=== PATIENT | male | born 1950 | race Caucasian/White ===

== ENCOUNTER → 2016-07-26 | Outpatient (CLI) | payer BC ==
[~2016-07-26] MED LIST: ASPI81TA28 PO; BYS/5 PO; CRD4 PO; FEXO1TAB49 PO; FLNIN/ NAE; LOSA100T65 PO; LPT10 PO; NRV/5 PO; OMEP20CA9 PO; SILD100T PO; SNG10 PO
--- NOTE | 2016-07-26 09:55 | DIAGNOSTIC IMAGING REPORT ---
ABDOMEN COMPLETE (US) CLINICAL HISTORY: R10.11 Abdominal pain, RUQ (right upper quadrant)[id number] COMPARISON STUDY: No previous studies for comparison. FINDINGS: The liver was of slightly increased echogenicity, consistent with hepatic steatosis. No focal masses are visualized. No gallstones are identified. There is no ductal dilatation. The common bile duct measured 4 mm. The pancreas is nonvisualized. The splenic masses are visualized. The spleen measures 8 cm in length. The right kidney measures 9.3 cm in length. The left kidney measures 9.3 cm in length. No renal masses were visualized. There is no hydronephrosis. No evidence of as the IVC were identified. The aorta was not well visualized. IMPRESSION: 1. Nondiagnostic evaluation the pancreas 2. Slight increase in hepatic echogenicity, likely secondary to hepatic steatosis 3. Otherwise unremarkable ultrasound of the upper abdomen. Electronically signed by: Alvin Dhillon M.D. 07/26/2016 9:54 AM Dictated Date/Time: 07/26/2016 9:49 AM
== END | disposition home or self-care (01) ==
LOC: C.ULTRBC 08:59
PROVIDERS: ATTEND Internal Medicine Geriatric Medicine
DX: R10.11 Right upper quadrant pain (principal)

== ENCOUNTER → 2016-10-18 | Outpatient (CLI) | payer BC ==
[2016-10-18 17:30] LABS: BASO % 0.5 %; BASO ABS # 0.03 K/uL (0-0.2); COMPLETE YES; EOS % 0.6 %; HEMATOCRIT 44.6 % (42-52); IG% 1.2 %; LYMPH % 16.6 %; LYMPH ABS # 1.08 K/uL (1.2-3.4); MEAN CELL VOLUME 93.7 fL (80-100); MEAN CORPUSCULAR HEMOGLOBIN 30.9 pg (25-34); MEAN PLATELET VOLUME 11.2 fL (7.4-10.4); MONO % 8.2 %; NEUT % 72.9 %; PLATELET COUNT 266 K/uL (130-400); RED BLOOD COUNT 4.76 M/uL (4.7-6.1); WHITE BLOOD COUNT 6.49 K/uL (4.8-10.8)
[2016-10-18 18:19] LABS: THYROID STIMULATING HORMONE 1.74 uIu/ml (0.300-4.500)
[2016-10-19 05:51] LABS: ESTIMATED AVERAGE GLUCOSE 126 mg/dl; HA1C FLAG Normal (Normal)
== END | disposition home or self-care (01) ==
LOC: C.LABPBG 11:02
PROVIDERS: ATTEND Internal Medicine Geriatric Medicine
DX: N18.9 Chronic kidney disease, unspecified (principal); R73.9 Hyperglycemia, unspecified; E78.5 Hyperlipidemia, unspecified; R53.83 Other fatigue; Z11.59 Encounter for screening for other viral diseases

== ENCOUNTER → 2016-11-26 | Day surgery (SDC) | payer BC ==
[2016-11-22 14:58] VITALS: Ht 157.5 cm; Wt 82.7 kg
[~2016-11-26] VITALS: Ht 157.5 cm; Wt 82.7 kg
[~2016-11-26] MED LIST changes: +KETAMINE HCL INJ 50 MG/ML 10 ML VIAL ONE; +LIDOCAINE HCL 2% 2 ML VIAL (20MG/ML) ONE; +MIDAZOLAM HCL 1 MG/ML 2ML VIAL ONE; +PROPOFOL IV EMULSION 10 MG/ML 20 ML VIAL IV ONE; +SODIUM CHLORIDE 0.9% 500ML 500 ML IV ONE
--- NOTE | 2016-11-26 08:49 | Endo History and Physical ---
History & Physical Date of Service: Nov 26, 2016. Chief Complaint: screening Referring Physician: Dr. Álvaro Goodman History of Present Illness 65 yo CM who presents for screening colonoscopy. Past Surgical History Hx Cardiac Surgery: No Hx Internal Defibrillator: No Hx Pacemaker: No Hx Abdominal Surgery: No Hx of Implantable Prosthesis: No Hx Post-Op Nausea and Vomiting: No Hx Cancer Surgery: Yes (SKIN CANCER REMOVED FROM FACE) Hx Thoracic Surgery: No Hx Orthopedic: No Hx Urinary Tract Surgery: No Family History None Social History Smoking Status: Never Smoker Hx Substance Use: No Hx Alcohol Use: No Allergies Coded Allergies: Lisinopril (Verified Allergy, Mild, COUGH, 11/22/16) Amoxicillin (Verified Allergy, Unknown, ?, 11/22/16) Clavulanic Acid (Verified Allergy, Unknown, ?, 11/22/16) Hydrochlorothiazide (Verified Allergy, Unknown, RASH, 11/22/16) Olmesartan (Verified Allergy, Unknown, ?, 11/22/16) Simvastatin (Verified Allergy, Unknown, RASH, 11/22/16) Current Medications Reported Home Medications Medications Dose Route/Sig Max Daily Dose Days Date Category Viagra (Sildenafil Citrate) 100 Mg Tab 100 Mg PO UD 05/21/16 Reported Atorvastatin Calcium (Atorvastatin) 10 Mg Tab 10 Mg PO QAM 05/21/16 Reported Fluticasone Propionate 120 Sprays/6000 Mcg Inha 2 Sprays PARI DAILY PRN 05/21/16 Reported Cozaar (Losartan Potassium) 100 Mg Tab 100 Mg PO QAM 05/21/16 Reported Prilosec (Omeprazole) 20 Mg Cap 20 Mg PO QAM 05/21/16 Reported Montelukast Sodium (Montelukast Sod) 10 Mg Tab 10 Mg PO QAM 05/21/16 Reported Doxazosin Mesylate 4 Mg Tab 4 Mg PO QAM 05/21/16 Reported Amlodipine Besylate 5 Mg Tab 5 Mg PO QAM 05/21/16 Reported Aspirin Ec (Aspirin) 81 Mg Tab 81 Mg PO QAM 05/21/16 Reported Bystolic (Nebivolol Hcl) 5 Mg Tab 7.5 Mg PO QAM 04/27/15 Reported Keira Allergy (Fexofenadine Hcl) 180 Mg Tab 180 Mg PO QAM PRN 04/27/15 Reported Vital Signs Weight (Kilograms): 82.73 Height (Feet): 5 Height (Inches): 2 Date Time Temp Pulse Resp B/P (MAP) Pulse Ox O2 Delivery O2 Flow Rate FiO2 11/26/16 08:13 36.6 72 18 164/95 (118) 98 Room Air Physical Exam General Appearance: WD/WN, no apparent distress Respiratory/Chest: Auscultation: breath sounds normal Cardiovascular: Heart Auscultation: RRR Abdomen: Bowel Sounds: normal Inspection & Palpation: soft, non-distended, no tenderness, guarding & rebound Assessment and Plan Assessment: 65 yo CM who presents for screening colonoscopy. Plan: Proceed with colonoscopy.
--- NOTE | 2016-11-26 09:39 | Discharge Instructions ---
Endoscopy Patient Instructions Date / Procedure(s) Performed Nov 26, 2016. Colonoscopy Allergy Information Coded Allergies: Lisinopril (Verified Allergy, Mild, COUGH, 11/22/16) Amoxicillin (Verified Allergy, Unknown, ?, 11/22/16) Clavulanic Acid (Verified Allergy, Unknown, ?, 11/22/16) Hydrochlorothiazide (Verified Allergy, Unknown, RASH, 11/22/16) Olmesartan (Verified Allergy, Unknown, ?, 11/22/16) Simvastatin (Verified Allergy, Unknown, RASH, 11/22/16) Discharge Date / Findings Nov 26, 2016. Diverticulosis Internal hemorrhoids Medication Instructions Stopped Medication(s): took ASA yesterday OK to resume all medications today as prescribed Reported Home Medications Medications Dose Route/Sig Max Daily Dose Days Date Category Viagra (Sildenafil Citrate) 100 Mg Tab 100 Mg PO UD 05/21/16 Reported Atorvastatin Calcium (Atorvastatin) 10 Mg Tab 10 Mg PO QAM 05/21/16 Reported Fluticasone Propionate 120 Sprays/6000 Mcg Inha 2 Sprays PARI DAILY PRN 05/21/16 Reported Cozaar (Losartan Potassium) 100 Mg Tab 100 Mg PO QAM 05/21/16 Reported Prilosec (Omeprazole) 20 Mg Cap 20 Mg PO QAM 05/21/16 Reported Montelukast Sodium (Montelukast Sod) 10 Mg Tab 10 Mg PO QAM 05/21/16 Reported Doxazosin Mesylate 4 Mg Tab 4 Mg PO QAM 05/21/16 Reported Amlodipine Besylate 5 Mg Tab 5 Mg PO QAM 05/21/16 Reported Aspirin Ec (Aspirin) 81 Mg Tab 81 Mg PO QAM 05/21/16 Reported Bystolic (Nebivolol Hcl) 5 Mg Tab 7.5 Mg PO QAM 04/27/15 Reported Keira Allergy (Fexofenadine Hcl) 180 Mg Tab 180 Mg PO QAM PRN 04/27/15 Reported Provider Instructions Activity Restrictions - No exercising or heavy lifting for 24 hours. - Do not drink alcohol the day of the procedure. - Do not drive a car or operate machinery until the day after the procedure. - Do not make any important decisions or sign important papers in 24 hours after the procedure. Following Day: - Return to full activity which may include returning to work/school. Diet Start your diet with liquids and light foods (jello, soup, juice, toast). Then eat your usual diet if not nauseated. Treatment For Common After Affects For mild abdominal pain, bloating, or excessive gas: - Rest - Eat lightly - Lie on right side Follow-Up Information Follow-up with Dr. Álvaro Goodman as scheduled Anesthesia Information What You Should Know You have had a procedure that required some medicine to reduce anxiety and discomfort. This treatment is called moderate sedation. After receiving the treatment, you may be sleepy, but you will be able to breathe on your own. The effects of the treatment may last for several hours. Follow these instructions along with Activity/Diet recommendations noted above: * Do NOT do anything where dizziness or clumsiness would be dangerous. * Rest quietly at home today, then you can be up and about tomorrow. * Have a responsible person stay with you the rest of today. * You may have had an I.V. today. If so, you may take the dressing off later today. Recommendations Call your doctor if: * Trouble breathing * Continuous vomiting for more than 24 hours * Temperature above 101 degrees * Severe abdominal pain or bloating * Pain not relieved by pain medicine ordered * There is increased drainage or redness from any incision * A large amount of rectal bleeding greater than 2-3 tablespoons. (If you had a polyp/s removed or have hemorrhoids, a small amount of blood - from the rectum is to be expected.) * You have any unanswered questions or concerns. IN THE EVENT OF A SERIOUS EMERGENCY, GO TO THE NEAREST EMERGENCY ROOM Your discharge instructions were prepared by provider Mihir Meek. Patient Instructions Signature Page Benjamín Sushil Patient (or Guardian) Signature/Date: I have read and understand the instructions given to me by my caregivers. Caregiver/RN/Doctor Signature/Date: The above-named patient and/or guardian has received patient instructions on this date. + Original Patient Signature Page (only) stays with chart. Please make copy for patient.
[2016-11-26 09:45] VITALS: BP 136/87; PULSE 66; TEMP 36.6; O2SAT 96
--- NOTE | 2016-11-26 09:46 | Anesthesiology Progress Note ---
Anesthesia Post Op Note Date & Time Nov 26, 2016 at 09:46 Vital Signs Pain Intensity: 0 Vital Signs Past 12 Hours Date Time Temp Pulse Resp B/P (MAP) Pulse Ox O2 Delivery O2 Flow Rate FiO2 11/26/16 09:45 36.6 66 20 136/87 (103) 96 Room Air 11/26/16 09:30 69 18 131/87 (102) 96 Room Air 11/26/16 09:15 67 18 119/75 (90) 98 Room Air 11/26/16 08:13 36.6 72 18 164/95 (118) 98 Room Air Notes Mental Status: alert / awake / arousable, participated in evaluation Pt Amnestic to Procedure: Yes Nausea / Vomiting: adequately controlled Pain: adequately controlled Airway Patency, RR, SpO2: stable & adequate BP & HR: stable & adequate Hydration State: stable & adequate Anesthetic Complications: no major complications apparent
--- NOTE | 2016-11-26 10:06 | GI REPORT ---
Procedure Date: 11/26/2016 8:46 AM Procedure: Colonoscopy Indications: Screening for colorectal malignant neoplasm Medicines: Monitored Anesthesia Care Complications: No immediate complications. Estimated Blood Loss: Estimated blood loss: none. Procedure: Pre-Anesthesia Assessment: - Prior to the procedure, a History and Physical was performed, and patient medications and allergies were reviewed. The patient's tolerance of previous anesthesia was also reviewed. The risks and benefits of the procedure and the sedation options and risks were discussed with the patient. All questions were answered, and informed consent was obtained. Prior Anticoagulants: The patient has taken aspirin, last dose was 1 day prior to procedure. ASA Grade Assessment: II - A patient with mild systemic disease. After reviewing the risks and benefits, the patient was deemed in satisfactory condition to undergo the procedure. After I obtained informed consent, the scope was passed under direct vision. Throughout the procedure, the patient's blood pressure, pulse, and oxygen saturations were monitored continuously. The Scope was introduced through the anus and advanced to the terminal ileum. The colonoscopy was performed without difficulty. The patient tolerated the procedure well. The quality of the bowel preparation was good. The terminal ileum, ileocecal valve, appendiceal orifice, and rectum were photographed. Findings: Multiple small-mouthed diverticula were found in the sigmoid colon. Non-bleeding internal hemorrhoids were found during retroflexion. The hemorrhoids were small. Impression: - Diverticulosis in the sigmoid colon. - Non-bleeding internal hemorrhoids. - No specimens collected. Recommendation: - Resume previous diet. - Continue present medications. - Repeat colonoscopy in 10 years for surveillance. - Return to primary care physician as previously scheduled. Mihri Meek, 11/26/2016 10:05:41 AM This report has been signed electronically. Note Initiated On: 11/26/2016 8:46 AM I attest to the content of the Intraoperative Record and orders documented therein, exceptions below
== END | disposition home or self-care (01) ==
LOC: C.GI 07:46
PROVIDERS: ATTEND Internal Medicine
DX: Z12.11 Encounter for screening for malignant neoplasm of colon (principal); K57.30 Diverticulosis of large intestine without perforation or abscess without bleeding; K64.8 Other hemorrhoids; Z79.82 Long term (current) use of aspirin; Z79.899 Other long term (current) drug therapy

== ENCOUNTER 2017-10-18 16:55 | Emergency (ER) | payer BC ==
[~2017-10-18] VITALS: Ht 157.5 cm; Wt 83.5 kg
[~2017-10-18 16:55] MED LIST changes: -ASPI81TA28 PO; -CRD4 PO; -FLNIN/ NAE; -KETAMINE HCL INJ 50 MG/ML 10 ML VIAL ONE; -LIDOCAINE HCL 2% 2 ML VIAL (20MG/ML) ONE; -LOSA100T65 PO; -LPT10 PO; -MIDAZOLAM HCL 1 MG/ML 2ML VIAL ONE; -NRV/5 PO; -OMEP20CA9 PO; -PROPOFOL IV EMULSION 10 MG/ML 20 ML VIAL IV ONE; -SILD100T PO; -SNG10 PO; -SODIUM CHLORIDE 0.9% 500ML 500 ML IV ONE
[2017-10-18 17:03] VITALS: TEMP 36.6
[2017-10-18 17:28] VITALS: Ht 157.5 cm; Wt 83.5 kg
[2017-10-18 17:33] VITALS: O2SAT 98
[2017-10-18 17:44] LABS: BASO % 0.4 %; BASO ABS # 0.03 K/uL (0-0.2); EOS % 2.2 %; EOS ABS # 0.15 K/uL (0-0.5); HEMATOCRIT 43.5 % (42-52); HEMOGLOBIN 15.3 g/dL (14.0-18.0); IG# 0.06 K/uL (0.00-0.02); LYMPH % 19.9 %; LYMPH ABS # 1.38 K/uL (1.2-3.4); MEAN CELL VOLUME 88.8 fL (80-100); MEAN CORPUSCULAR HEMOGLOBIN 31.2 pg (25-34); MEAN CORPUSCULAR HGB CONC 35.2 g/dl (32-36); MEAN PLATELET VOLUME 10.3 fL (7.4-10.4); MONO % 15.6 %; MONO ABS # 1.08 K/uL (0.11-0.59); NEUT ABS # 4.24 K/uL (1.4-6.5); PLATELET COUNT 251 K/uL (130-400); RED CELL DISTRIBUTION WIDTH CV 14.1 % (11.5-14.5); RED CELL DISTRIBUTION WIDTH SD 45.9 fL (36.4-46.3); WHITE BLOOD COUNT 6.94 K/uL (4.8-10.8)
[2017-10-18] MEDS ORDERED: TPRSR/100 PO (17:47)
[2017-10-18] MEDS ORDERED: POLY335019 PO (17:47)
[2017-10-18] MEDS ORDERED: TRMCR130WC TOP (17:47)
[2017-10-18 17:52] LABS: PTT PATIENT 24.3 SECONDS (21.0-31.0)
--- NOTE | 2017-10-18 18:05 | DIAGNOSTIC IMAGING REPORT ---
CHEST ONE VIEW PORTABLE CLINICAL HISTORY: 66 years-old Male presenting with EVALUATE ALTERED MENTAL STATUS/WEAKNESS. TECHNIQUE: Portable semiupright AP view of the chest was obtained. COMPARISON: 09/02/2015. FINDINGS: Cardiac silhouette top normal in size. Lungs and pleural spaces clear. Osseous structures normal. Upper abdomen normal. IMPRESSION: 1. No acute cardiopulmonary disease. Electronically signed by: Darnell Morris M.D. 10/18/2017 6:04 PM Dictated Date/Time: 10/18/2017 6:01 PM
[2017-10-18 18:18] VITALS: BP 128/79; PULSE 62; O2SAT 97
[2017-10-18 18:18] LABS: ALBUMIN 4.2 gm/dl (3.4-5.0); ALKALINE PHOSPHATASE 104 U/L (45-117); ALT/SGPT 40 U/L (12-78); AST/SGOT 22 U/L (15-37); BLOOD UREA NITROGEN 19 mg/dl (7-18); CARBON DIOXIDE 28 mmol/L (21-32); CREATININE 1.52 mg/dl (0.60-1.40); GLUCOSE 88 mg/dl (70-99); POTASSIUM 4.3 mmol/L (3.5-5.1); SODIUM 141 mmol/L (136-145); TOTAL PROTEIN 7.8 gm/dl (6.4-8.2)
--- NOTE | 2017-10-18 20:08 | EMERGENCY ROOM VISIT NOTE ---
History Report prepared by Savanah: Rubio Hackett Under the Supervision of: Dr. Rodney Valentin D.O. First contact with patient: 17:16 Chief Complaint: HYPERTENSION Stated Complaint: HIGH BLOOD PRESSURE, SWOLLEN HANDS AND ANKLES History of Present Illness The patient is a 66 year old male who presents to the Emergency Room with complaints of constant hypertension starting today around 1300 today. The patient states that he woke up today around 1300, and he felt sluggish, dizzy, swollen feet, and swollen arms. He has a history of hypertension for a long time , and his amlodipine was increased from 5mg to 7.5mg 4 months ago. The patient states that he took his blood pressure this afternoon, and it was 187/92, and then fifteen minutes later it had increased more. He called his PCP office, and they told him to come to the ED for evaluation. The patient states that last night while at work he was having increased shortness of breath with exertion. He denies any chest pain, tobacco use, alcohol use, urinary symptoms, and any past surgeries. Source of History: patient Onset: 1300 Position: other (generalized) Symptom Intensity: 187/92 Quality: other (hypertension) Timing: constant Associated Symptoms: + SOB, No chest pain, No urinary symptoms Note: Associated symptoms: sluggish, dizzy, swollen feet, and swollen arms Review of Systems See HPI for pertinent positives & negatives. A total of 10 systems reviewed and were otherwise negative. Past Medical & Surgical Medical Problems: (1) Esophageal Reflux (2) Hypertension Nos (3) Rosacea Surgical Problems: (1) Skin cancer of nose Social History Smoking Status: Never Smoker Alcohol Use: none Marital Status: Housing Status: lives with family Occupation Status: employed Current/Historical Medications Scheduled Amlodipine Besylate (Amlodipine Besylate), 5 MG PO QAM Aspirin (Aspirin Ec), 81 MG PO QAM Atorvastatin (Lipitor), 10 MG PO QAM Doxazosin Mesylate (Doxazosin Mesylate), 4 MG PO QAM Losartan Potassium (Cozaar), 100 MG PO QAM Metoprolol Succinate (Metoprolol Succinate ER), 100 MG PO DAILY Montelukast Sod (Montelukast Sodium), 10 MG PO QAM Omeprazole (Prilosec), 20 MG PO QAM Sildenafil Citrate (Viagra), 100 MG PO UD Scheduled PRN Fexofenadine Hcl (Keira Allergy), 180 MG PO QAM PRN for Allergy Symptoms Fluticasone Propionate (Fluticasone Propionate), 2 SPRAYS PARI DAILY PRN for Allergy Symptoms Polyethylene Glycol 3350 (Miralax), 17 GM PO DAILY PRN for Constipation Triamcinolone Acet (Aristocort 0.1%), 1 APPLN TOP BID PRN for legs Allergies Coded Allergies: Lisinopril (Verified Allergy, Mild, COUGH, 11/22/16) Amoxicillin (Verified Allergy, Unknown, ?, 11/22/16) Clavulanic Acid (Verified Allergy, Unknown, ?, 11/22/16) Hydrochlorothiazide (Verified Allergy, Unknown, RASH, 11/22/16) Olmesartan (Verified Allergy, Unknown, ?, 11/22/16) Simvastatin (Verified Allergy, Unknown, RASH, 11/22/16) Physical Exam Vital Signs Date Time Temp Pulse Resp B/P (MAP) Pulse Ox O2 Delivery O2 Flow Rate FiO2 10/18/17 18:18 62 18 128/79 97 Room Air 10/18/17 17:48 65 10/18/17 17:33 98 Room Air 10/18/17 17:33 98 Room Air 10/18/17 17:03 36.6 69 18 164/93 99 Room Air Physical Exam GENERAL: Patient is awake, alert, and in no acute distress. Patient is resting comfortably and showing no signs of anxiety EYES: The conjunctivae are clear. The pupils are round and reactive. EARS, NOSE, MOUTH AND THROAT: The nose is without any evidence of any deformity. Mucous membranes are moist tongue is midline NECK: The neck is nontender and supple. RESPIRATORY: Normal respiratory effort is noted there is no evidence of wheezing rhonchi or rales CARDIOVASCULAR: Regular rate and rhythm noted there no murmurs rubs or gallops normal S1 normal S2 GASTROINTESTINAL: The abdomen is soft. Bowel sounds are present in all quadrants. Abdomen is nontender MUSCULOSKELETAL/EXTREMITIES: There is no evidence of gross deformity full range of motion is noted in the hips and shoulders SKIN: There is no obvious evidence of any rash. There are no petechiae, pallor or cyanosis noted. NEUROLOGIC: Patient is awake alert and oriented x3 strength is symmetric patellar reflexes are 2+ bilaterally Medical Decision & Procedures ER Provider Diagnostic Interpretation: Radiology results as stated below per my review and radiologist interpretation: CHEST ONE VIEW PORTABLE CLINICAL HISTORY: 66 years-old Male presenting with EVALUATE ALTERED MENTAL STATUS/WEAKNESS. TECHNIQUE: Portable semiupright AP view of the chest was obtained. COMPARISON: 09/02/2015. FINDINGS: Cardiac silhouette top normal in size. Lungs and pleural spaces clear. Osseous structures normal. Upper abdomen normal. IMPRESSION: 1. No acute cardiopulmonary disease. Electronically signed by: Darnell Morris M.D. 10/18/2017 6:04 PM Dictated Date/Time: 10/18/2017 6:01 PM Laboratory Results 10/18/17 17:28 Red Blood Count 4.90, Mean Corpuscular Volume 88.8, Mean Corpuscular Hemoglobin 31.2, Mean Corpuscular Hemoglobin Concent 35.2, Mean Platelet Volume 10.3, Neutrophils (%) (Auto) 61.0, Lymphocytes (%) (Auto) 19.9, Monocytes (%) (Auto) 15.6, Eosinophils (%) (Auto) 2.2, Basophils (%) (Auto) 0.4, Neutrophils # (Auto ) 4.24, Lymphocytes # (Auto) 1.38, Monocytes # (Auto) 1.08, Eosinophils # (Auto ) 0.15, Basophils # (Auto) 0.03 10/18/17 17:28 Test 10/18/17 17:28 10/18/17 17:34 White Blood Count 6.94 K/uL (4.8-10.8) Red Blood Count 4.90 M/uL (4.7-6.1) Hemoglobin 15.3 g/dL (14.0-18.0) Hematocrit 43.5 % (42-52) Mean Corpuscular Volume 88.8 fL (80-100) Mean Corpuscular Hemoglobin 31.2 pg (25-34) Mean Corpuscular Hemoglobin Concent 35.2 g/dl (32-36) Platelet Count 251 K/uL (130-400) Mean Platelet Volume 10.3 fL (7.4-10.4) Neutrophils (%) (Auto) 61.0 % Lymphocytes (%) (Auto) 19.9 % Monocytes (%) (Auto) 15.6 % Eosinophils (%) (Auto) 2.2 % Basophils (%) (Auto) 0.4 % Neutrophils # (Auto) 4.24 K/uL (1.4-6.5) Lymphocytes # (Auto) 1.38 K/uL (1.2-3.4) Monocytes # (Auto) 1.08 K/uL (0.11-0.59) Eosinophils # (Auto) 0.15 K/uL (0-0.5) Basophils # (Auto) 0.03 K/uL (0-0.2) RDW Standard Deviation 45.9 fL (36.4-46.3) RDW Coefficient of Variation 14.1 % (11.5-14.5) Immature Granulocyte % (Auto) 0.9 % Immature Granulocyte # (Auto) 0.06 K/uL (0.00-0.02) Prothrombin Time 10.0 SECONDS (9.0-12.0) Prothromb Time International Ratio 1.0 (0.9-1.1) Activated Partial Thromboplast Time 24.3 SECONDS (21.0-31.0) Partial Thromboplastin Ratio 0.9 Anion Gap 5.0 mmol/L (3-11) Est Creatinine Clear Calc Drug Dose 46.0 ml/min Estimated GFR () 55.3 Estimated GFR (Non- 47.7 BUN/Creatinine Ratio 12.4 (10-20) Calcium Level 9.0 mg/dl (8.5-10.1) Magnesium Level 2.3 mg/dl (1.8-2.4) Total Bilirubin 0.6 mg/dl (0.2-1) Direct Bilirubin 0.1 mg/dl (0-0.2) Aspartate Amino Transf (AST/SGOT) 22 U/L (15-37) Alanine Aminotransferase (ALT/SGPT) 40 U/L (12-78) Alkaline Phosphatase 104 U/L (45-117) Troponin I < 0.015 ng/ml (0-0.045) Pro-B-Type Natriuretic Peptide 155 pg/ml (0-900) Total Protein 7.8 gm/dl (6.4-8.2) Albumin 4.2 gm/dl (3.4-5.0) Thyroid Stimulating Hormone (TSH) 2.060 uIu/ml (0.300-4.500) Urine Color YELLOW Urine Appearance CLEAR (CLEAR) Urine pH 7.0 (4.5-7.5) Urine Specific [place] 1.009 (1.000-1.030) Urine Protein NEG (NEG) Urine Glucose (UA) NEG (NEG) Urine Ketones NEG (NEG) Urine Occult Blood NEG (NEG) Urine Nitrite NEG (NEG) Urine Bilirubin NEG (NEG) Urine Urobilinogen NEG (NEG) Urine Leukocyte Esterase NEG (NEG) Laboratory results per my review. ECG Per My Interpretation Indication: other (hypertension) Rate (beats per minute): 65 Rhythm: normal sinus Findings: no ectopy, other (No acute ST segment abnormality) ED Course 1715: The patient was evaluated in room C4. A complete history and physical examination were performed. 1831: Upon reevaluation, the patient is doing okay. I discussed the results and treatment plan with him. He verbalized agreement of the treatment plan. He was discharged home. Medical Decision Differential diagnosis: Etiologies such as benign hypertension, hypertensive emergency, cardiovascular pathology, pheochromocytoma, electrolyte abnormality, renal disease, endorgan damage, as well as others were entertained. Nursing notes reviewed. The patient is a 66-year-old male who was sent to the emergency department for evaluation of high blood pressure by his primary care physician. The patient had no focal neurologic deficits. He was asymptomatic with his elevation in his blood pressure. I discussed patient's laboratory and radiographic studies with him. His blood pressure was monitored multiple times and was found to be significantly improved. I discussed follow-up with the patient and recommended that he continue all medications as prescribed and call his primary care physician in the morning. He is also encouraged to rest and avoid any strenuous activity. I also encouraged him to return to the emergency department immediately if symptoms change worsen or the need arises. Medication Reconcilliation Current Medication List: was personally reviewed by me Blood Pressure Screening Patient's blood pressure: Elevated blood pressure Blood pressure disposition: Referred to PCP Impression Primary Impression: HTN (hypertension) Scribe Attestation The scribe's documentation has been prepared under my direction and personally reviewed by me in its entirety. I confirm that the note above accurately reflects all work, treatment, procedures, and medical decision making performed by me. Departure Information Dispostion Home / Self-Care Referrals Álvaro Goodman M.D. (PCP) Forms HOME CARE DOCUMENTATION FORM, IMPORTANT VISIT INFORMATION, WORK / SCHOOL INSTRUCTIONS Patient Instructions Hypertension Nv, My [facility] Additional Instructions Call your family doctor in the morning to schedule a follow-up appointment. Rest and avoid any strenuous activity. Continue all medications as prescribed. Return to the emergency department immediately if symptoms change worsen or the need arises. Problem Qualifiers Primary Impression: HTN (hypertension) Hypertension type: unspecified Qualified Codes: I10 - Essential (primary) hypertension
[2017-10-18] MEDS ORDERED: FLNIN/ NAE (22:23)
[2017-10-18] MEDS ORDERED: SILD100T PO (22:23)
[2017-10-18] MEDS ORDERED: OMEP20CA9 PO (22:23)
[2017-10-18] MEDS ORDERED: LPT10 PO (22:23)
[2017-10-18] MEDS ORDERED: SNG10 PO (22:23)
[2017-10-18] MEDS ORDERED: NRV/5 PO (22:23)
[2017-10-18] MEDS ORDERED: LOSA100T65 PO (22:23)
[2017-10-18] MEDS ORDERED: ASPI81TA28 PO (22:23)
[2017-10-18] MEDS ORDERED: CRD4 PO (22:23)
== END 2017-10-18 18:45 | disposition home or self-care (01) ==
LOC: C.EDB 16:57 → C.EDC 18:45
DX: I10 Essential (primary) hypertension (principal); M79.89 Other specified soft tissue disorders; R42 Dizziness and giddiness; Z79.899 Other long term (current) drug therapy

== ENCOUNTER 2024-12-04 10:59 | Observation (INO) ==
--- NOTE | 2024-12-04 11:18 | Emergency Department Note ---
Impression & Plan Acute pericardial effusion, Chest pain, AUGUSTE (dyspnea on exertion), Chronic gastroesophageal reflux disease ED Provider Note NAME: MELANIE NEFF AGE: 73 SEX: M : 1950 ARRIVES VIA: Walk-In INFORMANT: Patient, ED PROVIDER(S): Nathan Rich DO CHIEF COMPLAINT: chest pain HPI: This is a 73-year-old male with the PMHx of prior pericardial effusion, hypertension, dyslipidemia, CKD and GERD presenting to [facility] for further evaluation of chest pain and SOB. History is provided by the patient and his at the bedside. Patient states he has had ongoing chest pain. Patient states that this has been ongoing for some time now. He states he has had recent changes in his medications for gastrointestinal disease. Patient reports a history of GERD. Patient reports he is currently on a PPI as well as famotidine. Patient states he has been taking antiacids frequently. Patient reports burning sensation that is intermittently sharp in the central area of his chest. Patient also notes that he has become orthopneic. Patient notes he has dyspnea on exertion. Chest pain and dyspnea are worse with any type of exertional activities. Patient states that he has a strong family history of cardiovascular disease. Patient denies any alcohol or tobacco use disorder. Patient has never had an EGD performed. Patient states that he has had cardiovascular workups in the past that have been unremarkable besides a small pericardial effusion. He states that this was following COVID infection in 2019. Patient reports that he was treated for this with a small pill that required kidney monitoring. They deny fever or chills. No cough or congestion. Denies chest palpitations. No recent procedures or lower extremity swelling. They deny abdominal pain, nausea and vomiting. No urinary complaints. No recent changes in bowel movements. Patient denies recent changes in medications or OTC supplements. Patient offers no other complaints, today. ADDITIONAL HISTORY OBTAINED: Per HPI Chronic Medical/Social Conditions Affecting Care: Per HPI PAST MEDICAL HISTORY: See Below PAST SURGICAL HISTORY: See Below FAMILY HISTORY: See Below SOCIAL HISTORY: See Below HOME MEDICATIONS: See Below ALLERGIES: See Below VITALS: See Below PHYSICAL EXAMINATION: GENERAL: Sitting up in bed, alert, well appearing, well nourished, no distress, non-toxic EYE EXAM: normal conjunctiva. PERRL and EOM's grossly intact. OROPHARYNX: no exudate, no erythema, lips, buccal mucosa, and tongue normal and mucous membranes are moist LUNGS: Clear to auscultation. Normal chest wall mechanics HEART: no murmurs, regular rate, regular rhythm ABDOMEN: abdomen soft, non-tender, normo-active bowel sounds, no masses, no rebound or guarding. SKIN: no rashes and no bruising. Warm and well perfused. UPPER EXTREMITIES: upper extremities are grossly normal. 2+ radials. Brisk capillary refill. LOWER EXTREMITIES: No pitting edema. 2+ DPs with brisk capillary refill. NEURO EXAM: Normal sensorium, GCS 15, normal speech, no gross weakness of arms, no gross weakness of legs. MEDICAL DECISION MAKING: Differential diagnosis includes but not limited to ACS, dysrhythmia, pleural effusion, pneumothorax, pneumonia, pericardial effusion, cardiac tamponade, PE, esophageal reflux, GERD, gastritis In summary, this is a 73-year-old presenting for chest pain and dyspnea. Triage and nursing notes reviewed. Patient is afebrile and hemodynamically stable. BP is borderline low for the patient's history. Diagnostics interpreted by me include EKG and cardiac monitoring as listed below: -Cardiac Monitoring: An order was placed for continuous cardiac monitoring. The monitor shows a rate of 70s with regular rhythm. -ECG: EKG independently interpreted by me reveals normal sinus rhythm at a ventricular rate of [address] segment changes chest STEMI. No interval changes. History provided by the patient includes worsening chest pain and dyspnea. His symptoms do seem to be related to possible gastrointestinal illness and disease including esophageal reflux and gastritis. Patient does have risk factors for ACS. I do feel with his risk factors including comorbidities as well as family history, cardiac workup is necessary. His symptoms could be related to angina but seem atypical and more likely related to his gastrointestinal disease. I independently reviewed the patient's echo from 2023 as well as stress echo from 2022. There was a small pericardial effusion, <1cm, preset at that time. Given discussion with patient, thought to likely be treated for pericarditis following COVID infection. Patient has normal cardiac function with no significant valvular disease. Patient's EF is 55%. Did have a normal stress echo without evidence of ischemic changes. Physical examination reveals the patient is warm and well-perfused with equal pulses in all 4 extremities. No evidence of significant heart failure. He is euvolemic to mildly hypervolemic based on physical examination and bedside US. No evidence of shock. He has no significant abdominal tenderness to suggest acute intra-abdominal pathology. Given history and presentation, we will Plan for cardiac workup and treatment of possible gastrointestinal illness including esophageal reflux and gastritis. Labs and imaging reviewed. Pertinent findings include no significant leukocytosis, baseline kidney function without significant electrolyte derangements and no transaminitis. Base was also within normal limits. Doubt pancreatitis given no significant epigastric tenderness to palpation. EKG as well as 2 negative troponins in time were reassuring. Doubt ACS or dysrhythmia at this time. chest x-ray independently interpreted by me with no sign enlargement of the cardiac silhouette but no evidence of focal infiltration to suggest pneumonia, pneumothorax or pleural effusions. No interstitial edema to suggest pulmonary edema or fluid overload. On reevaluation, he reports mild improvement in his symptoms from GI cocktail. I did discuss with him that he could continue carafate as an outpatient. Do feel the patient has been maxed out of medical therapies for GERD/gastritis. I did recommend outpatient GI follow up for EGD and further medical management. Bedside echo performed by me and independently interpreted by me at the bedside. Patient does have a moderate size pericardial effusion. As compared to prior studies, I do feel this is increased in size. All the patient's symptoms could be related to GI complaints, but he could have pericarditis or be symptomatic from his pericardial effusion. I find no ventricular or atrial collapse. IVC is collapsing. He has no physiologic or sonographic evidence of cardiac tamponade at this time. It sounds like the patient was originally treated for pericarditis with his remote history of pericardial effusion following COVID. Patient could have symptoms related to his pericardial effusion versus GI. Discussed with Dr. Colbert of [facility] cardiology. He is agreeable to see the patient. He is agreeable for formal TTE and observation. Discussed with [facility] Hospitalist team, Dr. Olguin, and admitted for telemetry and observation. Consults/Care Managements Discussions: Per MDM ER treatment provided: See above Procedures:none Critical Care: None Past Med/Surg History Problem List (Updated 12/04/24 @ 15:30 by Nathan Rich DO) Chronic gastroesophageal reflux disease (Acute) AUGUSTE (dyspnea on exertion) (Acute) Chest pain (Acute) Acute pericardial effusion (Acute) Right shoulder pain Pericardial effusion Carpal tunnel syndrome Allergic rhinitis Nasal septal deviation Hypertrophy of both inferior nasal turbinates Refractory obstruction of nasal airway Chronic congestion of paranasal sinus Vitamin D deficiency (Chronic) Prediabetes (Chronic) Dyslipidemia (high LDL; low HDL) (Chronic) Chronic kidney disease, stage 3 (Chronic) Basal cell carcinoma of skin of face (Chronic) Chronic allergic rhinitis (Chronic) GERD without esophagitis (Chronic) HTN (hypertension) (Chronic) Medical History COVID-19 (12/2019) Surgical History History of colonoscopy Family History Brother Myocardial infarction, Onset Age: 51 Family/Other Family history of atherosclerosis Sister Coronary heart disease Father , at age 62 Heart disease Mother , at age 72 Heart disease Heart disease and embolic ischemia of leg Breast cancer Denies family history of Ovarian cancer Prostate cancer Colorectal cancer Social History Smoking Status: Never smoker Second Hand Exposure: No; Do You Dip or Chew Tobacco: No; Hx Alcohol Use: No Hx Substance Use: No Preferred Language: Micronesian Communication Ability: Effective Visual Impairment: No Limitations Hearing Ability: Normal Clinical Science Liaison Required: No Beliefs That Will Affect Care: None marital status: Current Living Situation: Spouse current occupational status: retired How many Children do You have: 2 How many Children do You have Comment: retired co at [employer] Feels Safe at Home: Yes Childhood Exposure to Second-Hand Smoke: No Diet: regular Diet Comment: regular caffeine: Yes during the past year weight has: remained stable Dental Care, Regularly: Yes Physical Activity Frequency: 5-6 Times per Week Seatbelt Use: always Sunscreen Use: Yes Allergies Allergies Allergy/AdvReac Type Severity Reaction Status Date / Time lisinopril Allergy Mild COUGH Verified 11/27/24 11:12 amoxicillin Allergy Unknown ? Verified 11/27/24 11:12 clavulanic acid Allergy Unknown ? Verified 11/27/24 11:12 hydrochlorothiazide Allergy Unknown RASH Verified 11/27/24 11:12 olmesartan Allergy Unknown ? Verified 11/27/24 11:12 simvastatin Allergy Unknown RASH Verified 11/27/24 11:12 furosemide [From Lasix] AdvReac Unknown rash Verified 11/27/24 11:12 Home Meds Home Medications Medication Instructions Recorded Confirmed [id number] acid-vit 1 tab PO DAILY 06/20/20 11/27/24 K-lycop 400 mcg-20 mcg-370 mcg tablet (Men's 50 Plus Multivitamin) cholecalciferol (vitamin D3) 50 2,000 unit PO DAILY 06/22/21 11/27/24 mcg (2,000 unit) capsule Super Beets Chews PO 06/24/22 11/27/24 mecobalamin (vitamin B12) 1,000 1,000 mcg PO DAILY 01/25/23 11/27/24 mcg chewable tablet aspirin 81 mg tablet,delayed 81 mg PO DAILY 06/27/23 11/27/24 release fexofenadine 180 mg tablet 180 mg PO HS 08/08/24 11/27/24 (Keira Allergy) Previous Rx's Medication Instructions Recorded fluticasone propionate 50 2 spray intranasal QAM #47.4 mL 03/15/24 mcg/actuation nasal spray,suspension metoprolol succinate 50 mg 100 mg (2 x 50 mg) PO QAM #180 tabs 06/28/24 tablet,extended release 24 hr doxycycline hyclate 100 mg capsule 100 mg PO BID #14 caps 08/08/24 prednisone 10 mg tablet 10 mg PO DAILY #30 tabs 08/08/24 famotidine 40 mg tablet 40 mg PO HS #90 tabs 08/09/24 doxazosin 4 mg tablet 4 mg PO QAM #90 tabs 08/29/24 amlodipine 5 mg tablet 5 mg PO QAM #90 tabs 10/15/24 montelukast 10 mg tablet 10 mg PO HS #90 tabs 10/15/24 atorvastatin 10 mg tablet See Rx Instructions .Route 11/07/24 .COMPLEX #90 tabs esomeprazole magnesium 40 mg 40 mg PO BID gastric reflux #180 11/28/24 capsule,delayed release (Nexium) caps losartan 50 mg tablet 100 mg (2 x 50 mg) PO QAM #180 tabs 11/28/24 Results & Data (ED) Vital Signs Vital Signs - 24 hr 12/04/24 11:01 12/04/24 11:06 12/04/24 11:23 Temperature 36.5 C Temperature Source Temporal Artery Scan Pulse Rate 77 Pulse Rate from SpO2 Sensor Respiratory Rate 18 Respiratory Effort / Characteristics Non-Labored Spontaneous Respiratory Depth Normal Blood Pressure 160/80 H 199/115 H Blood Pressure Mean 106 136 Blood Pressure Position Sitting Pulse Oximetry 98 98 Oxygen Delivery Method Room Air Room Air Sepsis Recent Fever Within 48 Hours No Sepsis New/Unexplained Change in Mental Status No Sepsis Action Taken by Nursing No Action Required 12/04/24 11:23 12/04/24 11:24 12/04/24 11:25 Temperature Temperature Source Pulse Rate 77 80 Pulse Rate from SpO2 Sensor 78 Respiratory Rate 26 H Respiratory Effort / Characteristics Respiratory Depth Blood Pressure 199/115 H Blood Pressure Mean 136 Blood Pressure Position Pulse Oximetry 98 Oxygen Delivery Method Sepsis Recent Fever Within 48 Hours Sepsis New/Unexplained Change in Mental Status Sepsis Action Taken by Nursing 12/04/24 11:28 12/04/24 11:30 12/04/24 11:30 Temperature Temperature Source Pulse Rate 75 Pulse Rate from SpO2 Sensor Respiratory Rate 20 Respiratory Effort / Characteristics Respiratory Depth Blood Pressure 161/91 H 161/91 H Blood Pressure Mean 113 113 Blood Pressure Position Pulse Oximetry 98 Oxygen Delivery Method Room Air Sepsis Recent Fever Within 48 Hours Sepsis New/Unexplained Change in Mental Status Sepsis Action Taken by Nursing 12/04/24 11:33 12/04/24 11:42 12/04/24 11:51 Temperature Temperature Source Pulse Rate 73 73 69 Pulse Rate from SpO2 Sensor 74 72 69 Respiratory Rate 16 17 16 Respiratory Effort / Characteristics Respiratory Depth Blood Pressure Blood Pressure Mean Blood Pressure Position Pulse Oximetry 97 96 97 Oxygen Delivery Method Sepsis Recent Fever Within 48 Hours Sepsis New/Unexplained Change in Mental Status Sepsis Action Taken by Nursing 12/04/24 12:06 12/04/24 12:12 12/04/24 12:24 Temperature Temperature Source Pulse Rate 67 67 72 Pulse Rate from SpO2 Sensor 66 67 71 Respiratory Rate 19 16 21 Respiratory Effort / Characteristics Respiratory Depth Blood Pressure Blood Pressure Mean Blood Pressure Position Pulse Oximetry 96 96 97 Oxygen Delivery Method Sepsis Recent Fever Within 48 Hours Sepsis New/Unexplained Change in Mental Status Sepsis Action Taken by Nursing 12/04/24 12:30 12/04/24 12:30 12/04/24 12:30 Temperature Temperature Source Pulse Rate 65 Pulse Rate from SpO2 Sensor 65 Respiratory Rate 19 Respiratory Effort / Characteristics Respiratory Depth Blood Pressure 176/112 H 176/112 H Blood Pressure Mean 143 143 Blood Pressure Position Pulse Oximetry 94 Oxygen Delivery Method Sepsis Recent Fever Within 48 Hours Sepsis New/Unexplained Change in Mental Status Sepsis Action Taken by Nursing 12/04/24 12:30 12/04/24 12:42 12/04/24 12:51 Temperature Temperature Source Pulse Rate 73 67 Pulse Rate from SpO2 Sensor 71 68 Respiratory Rate 23 21 Respiratory Effort / Characteristics Respiratory Depth Blood Pressure 176/112 H Blood Pressure Mean 143 Blood Pressure Position Pulse Oximetry 95 97 Oxygen Delivery Method Sepsis Recent Fever Within 48 Hours Sepsis New/Unexplained Change in Mental Status Sepsis Action Taken by Nursing 12/04/24 12:54 12/04/24 13:46 12/04/24 13:51 Temperature Temperature Source Pulse Rate 66 62 Pulse Rate from SpO2 Sensor 67 63 Respiratory Rate 19 17 Respiratory Effort / Characteristics Respiratory Depth Blood Pressure 126/75 Blood Pressure Mean 82 Blood Pressure Position Pulse Oximetry 97 95 Oxygen Delivery Method Sepsis Recent Fever Within 48 Hours Sepsis New/Unexplained Change in Mental Status Sepsis Action Taken by Nursing 12/04/24 14:00 12/04/24 14:06 12/04/24 14:06 Temperature Temperature Source Pulse Rate 62 Pulse Rate from SpO2 Sensor 62 Respiratory Rate 19 Respiratory Effort / Characteristics Respiratory Depth Blood Pressure 94/65 L 101/72 Blood Pressure Mean 77 76 Blood Pressure Position Pulse Oximetry 95 Oxygen Delivery Method Sepsis Recent Fever Within 48 Hours Sepsis New/Unexplained Change in Mental Status Sepsis Action Taken by Nursing 12/04/24 14:21 12/04/24 14:36 12/04/24 14:48 Temperature Temperature Source Pulse Rate 69 73 68 Pulse Rate from SpO2 Sensor 70 73 68 Respiratory Rate 18 11 L 19 Respiratory Effort / Characteristics Respiratory Depth Blood Pressure Blood Pressure Mean Blood Pressure Position Pulse Oximetry 99 98 96 Oxygen Delivery Method Sepsis Recent Fever Within 48 Hours Sepsis New/Unexplained Change in Mental Status Sepsis Action Taken by Nursing 12/04/24 15:00 12/04/24 15:00 12/04/24 15:00 Temperature Temperature Source Pulse Rate Pulse Rate from SpO2 Sensor Respiratory Rate Respiratory Effort / Characteristics Respiratory Depth Blood Pressure 137/79 137/79 137/79 Blood Pressure Mean 86 86 86 Blood Pressure Position Pulse Oximetry Oxygen Delivery Method Sepsis Recent Fever Within 48 Hours Sepsis New/Unexplained Change in Mental Status Sepsis Action Taken by Nursing Laboratory Data 12/04/24 11:20 12/04/24 11:20 Lab Results 07/08/25 07/08/25 Range/Units 11:20 12:56 WBC 7.35 (4.8-10.8) K/ul RBC 4.56 L (4.70-6.10) M/uL Hgb 14.2 (14.0-18.0) g/dl Hct 41.0 L (42.0-52.0) % MCV 89.9 (80.0-100.0) fL MCH 31.1 (25.0-34.0) pg MCHC 34.6 (32.0-36.0) g/dL RDW Std Deviation 46.7 H (36.4-46.3) fL RDW Coeff of Elisa 14.0 (11.5-14.5) % Plt Count 252 (130-400) K/uL MPV 10.9 (9.4-12.4) fL Immature Gran % (Auto) 0.8 % Neut % (Auto) 67.2 % Lymph % (Auto) 16.6 % Knox % (Auto) 13.7 % Eos % (Auto) 1.2 % Baso % (Auto) 0.5 % Neut # (Auto) 4.93 (1.40-6.50) K/uL Lymph # (Auto) 1.22 (1.20-3.40) K/uL Knox # (Auto) 1.01 H (0.11-0.59) K/uL Eos # (Auto) 0.09 (0.00-0.50) K/uL Baso # (Auto) 0.04 (0.00-0.20) K/uL Immature Gran # (Auto) 0.06 (0.01-0.20) K/uL Sodium 139 (136-145) mmol/L Potassium 4.6 (3.5-5.1) mmol/L Chloride 106 (98-107) mmol/L Carbon Dioxide 28 (21-32) mmol/L Anion Gap 5 (3-11) BUN 21 (6-23) mg/dl Creatinine 1.49 H (0.6-1.4) mg/dl Est Cr Clr Drug Dosing 42.8 ml/min eGFR 49.86 BUN/Creatinine Ratio 14.1 (10-20) Glucose 92 (70-99(Fasting)) mg/dl Calcium 9.6 (8.6-10.3) mg/dl Total Bilirubin 0.4 (0.2-1.0) mg/dl AST 21 (13-39) U/L ALT 17 (7-52) U/L Alkaline Phosphatase 82 (34-104) U/L Troponin I High Sens 5.7 4.6 (0-20) pg/ml C-Reactive Protein 0.56 H (0-0.5) mg/dl Total Protein 7.2 (6.0-8.3) gm/dl Albumin 4.2 (3.4-5.0) gm/dl Globulin 3.0 (2.5-4.0) gm/dl Albumin/Globulin Ratio 1.4 (0.9-2) Lipase 23 (11-82) U/L Administered Medications Discontinued Medications Al Hydrox/Mg Hydrox/Simethicone (Aluminum/Magnesium Susp 30 Ml Udc) 30 ml PO NOW STA Stop: 12/04/24 11:29 Last Admin: 12/04/24 11:36 Dose: 30 ml Documented By: RADHA Sucralfate (Sucralfate 1 Gm Tab) 1 gm PO NOW STA Stop: 12/04/24 11:29 Last Admin: 12/04/24 11:36 Dose: 1 gm Documented By: RADHA Imaging Data Radiologist's Impression: Chest X-Ray 12/04/24 11:28 XR chest 1V portable HISTORY: 73 years-old Male Chest pain, nonspecific COMPARISON: 01/22/2020 TECHNIQUE: AP view of the chest FINDINGS: Cardiac silhouette is mildly enlarged. No pneumothorax, pleural effusion, airspace consolidation or overt pulmonary edema. The bones appear grossly intact. IMPRESSION: No acute process. ACT 112: Negative or not required by law. The above report was generated using voice recognition software. It may contain grammatical, syntax or spelling errors. Electronically signed by: Sidney Newby M.D. 12/04/2024 12:10 PM Discharge Plan Visit Data Chief Complaint: Cardiac Assessment Stated Complaint: LIGHT HEADED,SOB,TIGHNESS OF THROAT,WEAK ED Provider: Nathan Rich Discharge Problem: Acute pericardial effusion, Chest pain, AUGUSTE (dyspnea on exertion), Chronic gastroesophageal reflux disease Patient Disposition: Admitted As Inpatient Condition: Fair Forms Stand Alone Forms: [facility] CelebCalls Prescriptions Prescriptions: No Action fluticasone propionate 50 mcg/actuation spray,suspension 2 spray INTNAS QAM Qty: 47.4 0RF metoprolol succinate 50 mg tablet extended release 24 hr 100 mg PO QAM Qty: 180 1RF Rx Instructions: TAKE 2 TABLETS EVERY AM famotidine 40 mg tablet 40 mg PO HS Qty: 90 3RF doxazosin 4 mg tablet 4 mg PO QAM Qty: 90 1RF montelukast 10 mg tablet 10 mg PO HS Qty: 90 1RF amlodipine 5 mg tablet 5 mg PO QAM Qty: 90 1RF atorvastatin 10 mg tablet See Rx Instructions .ROUTE .COMPLEX Qty: 90 1RF Dose Instruction: TAKE 1 TABLET BY MOUTH EVERY DAY IN THE MORNING Rx Instructions: TAKE 1 TABLET BY MOUTH EVERY DAY IN THE MORNING losartan 50 mg tablet 100 mg PO QAM Qty: 180 1RF esomeprazole magnesium [Nexium] 40 mg capsule,delayed release(DR/EC) 40 mg PO BID Qty: 180 1RF cholecalciferol (vitamin D3) 50 mcg (2,000 unit) capsule 2,000 unit PO DAILY Super Beets Chews PO aspirin 81 mg tablet,delayed release (DR/EC) 81 mg PO DAILY mecobalamin (vitamin B12) 1,000 mcg tablet,chewable 1,000 mcg PO DAILY Men's 50 Plus Multivitamin 400-20-370 mcg tablet 1 tab PO DAILY Rx Instructions: give with meal/snack doxycycline hyclate 100 mg capsule 100 mg PO BID Qty: 14 0RF prednisone 10 mg tablet 10 mg PO DAILY Qty: 30 0RF Rx Instructions: Take 5 tablets x 2 days. Then 4 tablets x 2 days. Then 3 tablets x 2 days. Then 2 tablets x 2 days. Then 1 tablet x 2 days. 5,5,4,4,3,3,2,2,1,1 fexofenadine [Keira Allergy] 180 mg tablet 180 mg PO HS Referrals Referrals: Jeannette Griffith DO [Primary Care Provider] -
[2024-12-04] MEDS: ALUMINUM/MAGNESIUM SUSP 30 ML UDC PO STA (11:36)
[2024-12-04] MEDS: SUCRALFATE 1 GM TAB PO STA (11:36)
[2024-12-04 11:41] LABS: Hematocrit (blood only) 41.0 % (42.0-52.0); Hemoglobin 14.2 g/dl (14.0-18.0); Immature Granulocytes # (auto) 0.06 K/uL (0.01-0.20); Immature Granulocytes % (auto) 0.8 %; Mean Corpuscular Hemoglobin 31.1 pg (25.0-34.0); Mean Corpuscular Volume 89.9 fL (80.0-100.0); Platelet Count 252 K/uL (130-400); RDW Standard Deviation 46.7 fL (36.4-46.3); Red Blood Count 4.56 M/uL (4.70-6.10); White Blood Count 7.35 K/ul (4.8-10.8)
[2024-12-04 12:01] LABS: Alanine Aminotransferase 17.0 U/L (7-52); Albumin Globulin Ratio 1.4 (0.9-2); Alkaline Phosphatase 82.0 U/L (34-104); Anion Gap 5.0 (3-11); Bilirubin,Total 0.4 mg/dl (0.2-1.0); Blood Urea Nitrogen 21.0 mg/dl (6-23); Calcium 9.6 mg/dl (8.6-10.3); Carbon Dioxide 28.0 mmol/L (21-32); Chloride 106.0 mmol/L (98-107); Creatinine Clr Calc Pharmacy 42.8 ml/min; Globulin 3.0 gm/dl (2.5-4.0); Glucose 92.0 mg/dl (70-99(Fasting)); Lipase 23.0 U/L (11-82); Potassium 4.6 mmol/L (3.5-5.1); Sodium 139.0 mmol/L (136-145); Total Protein 7.2 gm/dl (6.0-8.3)
--- NOTE | 2024-12-04 12:11 | XRay Report ---
XR chest 1V portable HISTORY: 73 years-old Male Chest pain, nonspecific COMPARISON: 01/22/2020 TECHNIQUE: AP view of the chest FINDINGS: Cardiac silhouette is mildly enlarged. No pneumothorax, pleural effusion, airspace consolidation or o vert pulmonary edema. The bones appear grossly intact. IMPRESSION: No acute process. ACT 112: Negative or not required by law. The above report was generated using voice recognition software. It may contain grammatical, syntax o r spelling errors. Electronically signed by: Sidney Newby M.D. 12/04/2024 12:10 PM
[2024-12-04] MEDS ORDERED: ACETAMINOPHEN 325 MG TAB PO PRN (15:13)
[2024-12-04] MEDS ORDERED: ATORVASTATIN 10 MG TAB PO SCH (15:30)
[2024-12-04] MEDS: FUROSEMIDE 40 MG/4 ML VIAL IV ONE (16:15)
--- NOTE | 2024-12-04 16:57 | XCELERA ---
[id number] \\[id number]
--- NOTE | 2024-12-04 17:39 | Cardiology Consultation ---
Date of Consultation December 04, 2024 Assessment & Plan (1) Pericardial effusion: (2) Chest pain: (3) [place] (dyspnea on exertion): Plan 1. Pericardial effusion: Chronic. Moderate in size. No evidence of hemodynamic compromise. This is likely due to the chronic nature of the effu cortney. Unclear etiology but likely inflammatory. It seems that he was on colchicine for a brief period but there was some concern about renal function. He may benefit from another trial of anti-inflammatories. Nonsteroidal medications may be relatively contraindicated given his other symptoms. I do not think there is an urgent need for evacuation of the effusion although we could consider this if his symptoms fail to resolve with other remedies or we simply want to expedite resolution. 2. Chest pain: His symptoms of chest discomfort are almost certainly noncardiac. They are longstanding in nature. There are several features which would be atypical for coronary insufficiency including the positional and pleuritic nature of his symptoms. He also appears to have had some extended epi sodes which have not resulted in any increase in his biomarkers. 3. Dyspnea on exertion: This is a concerning symptom. It seems he is been evaluated for the same symptom previously with an exercise echocardiogram performed in December 2022. His symptoms do appear to have progressed. We could consider reevaluation with another exercise echocardiogram. I do not think this is an urgent matter and his primary symptoms could be addressed first. Unlikely that the pericardial effusion is causing the symptoms given the absence of hemodynamic compromise. History of Present Illness Reason for Consultation: Pericardial effusion, chest pain Requesting Physician: Hilario History of Present Illness The patient is a 73-year-old gentleman with a history of a pericardial effusion who presented to the emergency room at the direction of his primary care provider for symptoms of chest discomfort. It seems that the patient has been struggling with some gastrointestinal symptoms and epigastric pain for some time. He apparently has a long history of gastroesophageal reflux disease which has recently manifest itself by a sense of discomfort in the precordium and throat. He has been tried on escalating doses of proton pump inhibitors and other remedies. However, his symptoms appear to have progressed to the point where he has difficulty even lying down without producing symptoms. Last evening he had frequent symptoms that did not respond to his usual regimen of antacids and Mylanta. The patient states that his discomfort is generally in the precordial region. He also feels it in his throat. It is notably positional. He states that this is present when he lies flat but improves when he sits upwards. Deep inspiration also increases the discomfort. There is some exertional symptoms. In fact, he has also been struggling with a sense of dyspnea on exertion for several years. This has become somewhat worse recently. Occasionally when he has the dyspnea on exertion he will also have his reflux type symptoms. He denies dizziness or lightheadedness. He has not suffered syncope. He has not noticed any palpitations. No lower extremity edema. He has had a stress test for symptoms of dyspnea on exertion approximately 2 years ago. Allergies Allergy/AdvReac Type Severity Reaction Status Date / Time lisinopril Allergy Mild COUGH Verified 12/04/24 15:31 amoxicillin Allergy Unknown ? Verified 12/04/24 15: clavulanic acid Allergy Unknown ? Verified 12/04/24 15:31 hydrochlorothiazide Allergy Unknown RASH Verified 12/04/24 15:31 olmesartan Allergy Unknown ? Verified 12/04/24 15:31 simvastatin Allergy Unknown RASH Verified 12/04/24 15:31 furosemide [From Lasix] AdvReac Unknown rash Verified 12/04/24 15:31 Home Medications Medication Instructions Recorded Confirmed Type [id number] acid-vit 1 tab PO DAILY 06/20/20 12/04/24 History K-lycop 400 mcg-20 mcg-370 mcg tablet (Men's 50 Plus Multivitamin) cholecalciferol (vitamin D3) 50 2,000 unit PO DAILY 06/22/21 12/04/24 History mcg (2,000 unit) capsule Super Beets Chews 1 tab PO QAM 06/24/22 12/04/24 History mecobalamin (vitamin B12) 1,000 1,000 mcg PO DAILY 01/25/23 12/04/24 History mcg chewable tablet aspirin 81 mg tablet,delayed 0 mg PO DAILY 06/27/23 12/04/24 History release fluticasone propionate 50 2 spray intranasal QAM #47.4 mL 03/15/24 12/04/24 Rx mcg/actuation nasal spray,suspension metoprolol succinate 50 mg 100 mg (2 x 50 mg) PO QAM #180 tabs 06/28/24 12/04/24 Rx tablet,extended release 24 hr famotidine 40 mg tablet 40 mg PO HS #90 tabs 08/09/24 12/04/24 Rx doxazosin 4 mg tablet 4 mg PO QAM #90 tabs 08/29/24 12/04/24 Rx amlodipine 5 mg tablet 5 mg PO QAM #90 tabs 10/15/24 12/04/24 Rx montelukast 10 mg tablet 10 mg PO HS #90 tabs 10/15/24 12/04/24 Rx esomeprazole magnesium 40 mg 40 mg PO BID gastric reflux #180 11/28/24 12/04/24 Rx capsule,delayed release (Nexium) caps losartan 50 mg tablet 100 mg (2 x 50 mg) PO QAM #180 tabs 11/28/24 12/04/24 Rx atorvastatin 10 mg tablet 10 mg PO QAM 12/04/24 12/04/24 History Patient History Medical History COVID-19 (12/2019) Surgical History History of colonoscopy Family History Brother Myocardial infarction, Onset Age: 51 Family/Other Family history of atherosclerosis Sister Coronary heart disease Father , at age 62 Heart disease Mother , at age 72 Heart disease Heart disease and embolic ischemia of leg Breast cancer Denies family history of Ovarian cancer Prostate cancer Colorectal cancer Social History Smoking Status: Never smoker Second Hand Exposure: No; Do You Dip or Chew Tobacco: No; Hx Alcohol Use: No Hx Substance Use: No Preferred Language: Irish Communication Ability: Effective Visual Impairment: No Limitations Hearing Ability: Normal Beer Brewer Required: No Beliefs That Will Affect Care: None marital status: Current Living Situation: Spouse current occupational status: retired How many Children do You have: 2 How many Children do You have Comment: retired co at [employer] Feels Safe at Home: Yes Childhood Exposure to Second-Hand Smoke: No Diet: regular Diet Comment: regular caffeine: Yes during the past year weight has: remained stable Dental Care, Regularly: Yes Physical Activity Frequency: 5-6 Times per Week Seatbelt Use: always Sunscreen Use: Yes Review of Systems Review of Systems: Per HPI. No swollen joints or recent rashes. No fevers or chills. Positive diarrhea last evening associated with his symptoms. Positive abdominal bloating. Physical Exam Physical Exam: The patient is alert and oriented. Mood and affect appeared normal. He answered all questions appropriately. HEENT: Pupils are equal and reactive to light and accommodation. Extraocular movements are intact. The sclerae are anicteric. Neuro: Cranial nerves intact Lungs: Clear to auscultation bilaterally. He has good air movement without use of accessory muscles. No rales wheezes or rhonchi. Cardiac: Heart demonstrates a regular rate and rhythm. Normal S1 and S2. No murmurs on examination. Pulses: The patient has palpable radial pulses bilaterally that are equal in intensity Extremities: There was no evidence of hypoperfusion. There is no cyanosis or clubbing. There is no edema. Skin: I did not appreciate any rashes on examination today. Results & Data Vital Signs (Past 12 Hours) Vital Signs Temp Pulse Resp BP Pulse Ox O2 Del Method 12/04/24 17:21 74 16 97 12/04/24 17:00 65 20 97 12/04/24 17:00 120/72 12/04/24 17:00 120/72 12/04/24 17:00 120/72 12/04/24 16:42 67 20 97 12/04/24 16:36 81 23 96 12/04/24 16:33 149/108 H 12/04/24 16:33 149/108 H 12/04/24 16:13 80 12/04/24 16:09 73 15 12/04/24 16:06 77 23 12/04/24 15:36 77 21 12/04/24 15:00 137/79 12/04/24 15:00 137/79 12/04/24 15:00 137/79 12/04/24 14:48 68 19 96 12/04/24 14:36 73 11 L 98 12/04/24 14:21 69 18 99 12/04/24 14:06 62 19 95 12/04/24 14:06 101/72 12/04/24 14:00 94/65 L 12/04/24 13:51 62 17 95 12/04/24 13:46 126/75 12/04/24 12:54 66 19 97 12/04/24 12:51 67 21 97 12/04/24 12:42 73 23 95 12/04/24 12:30 176/112 H 12/04/24 12:30 176/112 H 12/04/24 12:30 176/112 H 12/04/24 12:30 65 19 94 12/04/24 12:24 72 21 97 12/04/24 12:12 67 16 96 12/04/24 12:06 67 19 96 12/04/24 11:51 69 16 97 12/04/24 11:42 73 17 96 12/04/24 11:33 73 16 97 12/04/24 11:30 161/91 H 12/04/24 11:30 161/91 H 12/04/24 11:28 75 20 98 Room Air 12/04/24 11:25 80 12/04/24 11:24 77 26 H 98 12/04/24 11:23 199/115 H 12/04/24 11:23 199/115 H 12/04/24 11:06 36.5 C 77 18 160/80 H 98 Room Air 12/04/24 11:01 98 Room Air Laboratory Results Abnormal Lab Results 12/04/24 12/04/24 12/04/24 11:20 12:56 16:50 WBC 7.35 RBC 4.56 L Hgb 14.2 Hct 41.0 L MCV 89.9 MCH 31.1 MCHC 34.6 RDW Std Deviation 46.7 H RDW Coeff of Elisa 14.0 Plt Count 252 MPV 10.9 Immature Gran % (Auto) 0.8 Neut % (Auto) 67.2 Lymph % (Auto) 16.6 Henderson % (Auto) 13.7 Eos % (Auto) 1.2 Baso % (Auto) 0.5 Neut # (Auto) 4.93 Lymph # (Auto) 1.22 Henderson # (Auto) 1.01 H Eos # (Auto) 0.09 Baso # (Auto) 0.04 Immature Gran # (Auto) 0.06 ESR 27 H Sodium 139 Potassium 4.6 Chloride 106 Carbon Dioxide 28 Anion Gap 5 BUN 21 Creatinine 1.49 H Est Cr Clr Drug Dosing 42.8 eGFR 49.86 BUN/Creatinine Ratio 14.1 Glucose 92 Calcium 9.6 Total Bilirubin 0.4 AST 21 ALT 17 Alkaline Phosphatase 82 Troponin I High Sens 5.7 4.6 5.3 C-Reactive Protein 0.56 H Total Protein 7.2 Albumin 4.2 Globulin 3.0 Albumin/Globulin Ratio 1.4 Lipase 23 Diagnostic Findings Chest x-ray obtained at time of admission not reveal any acute cardiopulmonary process Echocardiogram 12/04/2024: Normal LV systolic function with ejection fraction of 55 to 60%. Stage II diastolic dysfunction. Mild left atrial dilation. Moderate size pericardial effusion. Normal right ventricular pressure. ECG Additional Comments: Normal sinus rhythm. Normal EKG PG Care Time/CCT Total # of Minutes Spent Total Time Spent with Patient: Total time spent is greater than 50% in coordination of care (as documented) at patient's floor/unit and/or counseling patient: Coding Level of Care Code 38712 INT INP/OBS CARE 3/75MIN Diagnoses Pericardial effusion I31.39 Chest pain R07.9 [place] (dyspnea on exertion) R06.09
--- NOTE | 2024-12-04 18:09 | Electrocardiogram Report ---
Test Reason : Blood Pressure : */* mmHG Vent. Rate : 77 BPM Atrial Rate : 77 BPM P-R Int : 182 ms QRS Dur : 96 ms QT Int : 380 ms P-R-T Axes : 73 55 65 degrees QTcB Int : 430 ms Normal sinus rhythm Low voltage QRS Borderline ECG When compared with ECG of 22-Jan-2020 09:58, No significant change was found Confirmed by Samir Colbert ([id number]) on 12/04/2024 6:09:10 PM Referred By: REFERRED SELF Confirmed By: Samir Colbert
--- NOTE | 2024-12-04 18:42 | History & Physical Report ---
Date of Service December 04, 2024 Assessment & Plan (1) Chronic gastroesophageal reflux disease: Plan: As above in the History of Present Illness. (2) Chronic pericardial effusion: Plan: As above in the History of Present Illness. Admission and Anticipated Discharge Date Admission Date: December 04, 2024 History of Present Illness Chief Complaint: "I came to [facility] ER today because I can no longer take the burning in my throat; it comes up from my stomach and into my throat and mouth, and makes it so that I do not even want to breathe or even swallow any food. The burning gets worse when I lie down, day or night, and so I cannot sleep in a bed. I sleep upright in a recliner for the past 2 weeks, so that the burning in my throat is not so bad. I should let you know that I have really bad acid reflux for the past 30 years; I am taking esomeprazole 40mg PO bid and famotidine 40mg PO qhs, and they don't help reduce the burning in my throat. I did not come to [facility] ER with any shortness of breath or chest pain. I came to [facility] ER to figure out why I have this burning in my throat getting worse over the past 2 weeks. I have never had an EGD done, so maybe I can get an EGD here in [facility]." Primary Care Provider: Jeannette Griffith DO 73 years old male with PMH of FULL CODE @ home, obesity with BMI 33.3 (height 157.5 cm; weight 82.6 kg), allergic rhinitis on fluticasone nasal spray, 2 sprays to each nostril daily, hyperlipidemia on atorvastatin 10mg PO qam, HTN on amlodipine 5mg PO qam, doxazosin 4mg PO qam, losartan 100mg PO qam, and metoprolol succinate 100mg PO qam, CKD stage III with baseline creatinine range, 1.35 - 1.67 mg/dL (04/04/2017 - 06/19/2024), long COVID s/p initial infection in December 2018, never hospitalized for COVID, but "sick for 11 days with no strength at all and all my organs got affected bad by this virus; I didn't really have a fever, but my blood pressure was low, and my son had to bring me food every day to help me eat and survive, otherwise I would be long now," followed by subsequent development of (a) "small pericardial effusion (< 1cm)" (as noted on 05/19/2023, 9:04am TTE, CARDS Dr. Rodney Benito)(as noted on 11/24/2023, 8:56am TTE, CARDS Dr. Rodney Benito), (b) mild intermittent asthma on singulair 10mg PO qhs. Patient also concedes to chronic, severe GERD (never formally diagnosed with EGD) for the past 30 years, on empiric esomeprazole 40mg PO bid and famotidine 40mg PO qhs to no avail, compelling patient to sleep in a recliner for the past 2 weeks because of water brash in the mouth, who reports: "I came to [facility] ER today because I can no longer take the burning in my throat; it comes up from my stomach and into my throat and mouth, and makes it so that I do not even want to breathe or even swallow any food. The burning gets worse when I lie down, day or night, and so I cannot sleep in a bed. I sleep upright in a recliner for the past 2 weeks, so that the burning in my throat is not so bad. I should let you know that I have really bad acid reflux for the past 30 years; I am taking esomeprazole 40mg PO bid and famotidine 40mg PO qhs, and they don't help reduce the burning in my throat. I did not come to [facility] ER with any shortness of breath or chest pain. I came to [facility] ER to figure out why I have this burning in my throat getting worse over the past 2 weeks. I have never had an EGD done, so maybe I can get an EGD here in [facility]." Patient denies antecedent/coincident fevers, chills, diaphoresis, cough, wheeze, sore throat, hemoptysis, chest pains, palpitations, pleurisy, shortness of breath, dyspnea on exertion, paroxysmal nocturnal dyspnea, orthopnea, platypnea, weight loss, weight gain, early satiety, anosmia, ageusia, myalgias, arthralgias, prostration, nausea, vomiting, diarrhea, abdominal pain, pelvic pain, hematemesis, hematochezia, melena, hematuria, dysuria, frequency, urgency, flank pain, headaches, dizziness, lightheadedness, visual changes, hearing changes, weakness, falls, syncope, trauma, travel history, sick contacts, or food/drug ingestions novel or new. All other review of systems are reported as negative by the patient on observation date 12/04/2024. In [facility] ER bed #A10, patient was afebrile @ 36.5 degrees Celsius, HR 77, RR 18, O2 sat 98% on room air, and BP 160/80 (12/04/2024, 11:06am). Exam was noted for the absence of enamel erosion, intra-mucosal nevi, or aphthous ulcers. Labs in [facility] ER bed #A10 included: WBC 7.35, N67 L17 M14 E1 B1, Hb 14.2, MCV 89.9, MCHC 34.6, platelet 252 (, 11:20am). Na 139, K 4.6, BUN 21, creatinine 1.49, GFR 49.9, glucose 92, Ca 9.6, AST 21, ALT 17, ALK PHOS 82, TBili 0.4 (12/04/2024, 11:20am). Troponin-I #1 5.7 pg/mL (12/04/2024, 11:20am). Troponin-I #2 4.6 pg/mL (12/04/2024, 12:56pm). Troponin-I #3 5.3 pg/mL (12/04/2024, 4:50pm). CRP 0.56 mg/dL (12/04/2024, 11:20am). Lipase 23 U/L (12/04/2024, 11:20am. Additional testing in [facility] ER bed #A10 included: Portable CXR (12/04/2024, 11:28am): No infiltrate, effusion, cardiomegaly, pu lmonary vascular congestion, or pneumothorax (by my review). EKG (12/04/2024, 11:15am): NSR @ 77, WI 182, QTC 430, no acute ST depressions/elevations (by my review). TTE (12/04/2024, 3:27pm): 1. LVEF 55-60%. LV grade II diastolic dysfunction. 2. LA mildly dilated. RA size normal. 3. RV normal size and function. 4. Moderate size pericardial effusion. 5. No /AR. 6. PV grossly normal. 7. Significant MR absent. 8. Mild TR with RVSP normal. (as per CARDS Dr. Samir Colbert). Patient was subsequently placed in OBSERVATION on the hospitalist service @ [facility] on 12/04/2024 with the following diagnoses: 1. Chronic, severe GERD (never formally diagnosed with EGD) for the past 30 years, on empiric esomeprazole 40mg PO bid and famotidine 40mg PO qhs to no avail, compelling patient to sleep in a recliner for the past 2 weeks because of water brash in the mouth. R/O gastric/esophageal ulcer, R/O malignancy. 2. Incidental report of "moderate size pericardial effusion." (as noted on 12/04/2024, 3:27pm TTE, CARDS Dr. Samir Colbert). To address #1, patient was started on protonix 40mg IV bid (12/04/2024, 6:35pm) and awaits formal GI Service evaluation with Dr. Daniel Conn in the 12/05/2024 am with anticipated EGD. Of note, etiology of elevated CRP 0.56 mg/dL (12/04/2024, 11:20am) remains unclear, but probably represents long-standing inflammation associated with patient's presumptive diagnosis of chronic, severe GERD. To address #2, patient is being observed without further evaluation/intervention as "moderate size pericardial effusion" (as noted on 12/04/2024, 3:27pm TTE, CARDS Dr. Samir Colbert) most likely represents the sequela of post-COVID infection (December 2018) and is not likely to be causing or contributing to patient's complaints of severe burning radiating from the stomach to the throat/mouth. Moreover, patient remains hemodynamically stable and no tamponade physiology is observed on 12/04/2024, 3:21pm TTE, CARDS Dr. Samir Colbert). Allergies Allergy/AdvReac Type Severity Reaction Status Date / Time lisinopril Allergy Mild COUGH Verified 12/04/24 15:31 amoxicillin Allergy Unknown ? Verified 12/04/24 15:31 clavulanic acid Allergy Unknown ? Verified 12/04/24 15:31 hydrochlorothiazide Allergy Unknown RASH Verified 12/04/24 15:31 olmesartan Allergy Unknown ? Verified 12/04/24 15:31 simvastatin Allergy Unknown RASH Verified 12/04/24 15:31 furosemide [From Lasix] AdvReac Unknown rash Verified 12/04/24 15:31 Home Medications Medication Instructions Recorded Confirmed Type aijshrawrtfa-[id number]-[id number] acid-vit 1 tab PO DAILY 06/20/20 12/04/24 History K-lycop 400 mcg-20 mcg-370 mcg tablet (Men's 50 Plus Multivitamin) cholecalciferol (vitamin D3) 50 2,000 unit PO DAILY 06/22/21 12/04/24 History mcg (2,000 unit) capsule Super Beets Chews 1 tab PO QAM 06/24/22 12/04/24 History mecobalamin (vitamin B12) 1,000 1,000 mcg PO DAILY 01/25/23 12/04/24 History mcg chewable tablet aspirin 81 mg tablet,delayed 0 mg PO DAILY 06/27/23 12/04/24 History release fluticasone propionate 50 2 spray intranasal QAM #47.4 mL 03/15/24 12/04/24 Rx mcg/actuation nasal spray,suspension metoprolol succinate 50 mg 100 mg (2 x 50 mg) PO QAM #180 tabs 06/28/24 12/04/24 Rx tablet,extended release 24 hr famotidine 40 mg tablet 40 mg PO HS #90 tabs 08/09/24 12/04/24 Rx doxazosin 4 mg tablet 4 mg PO QAM #90 tabs 08/29/24 12/04/24 Rx amlodipine 5 mg tablet 5 mg PO QAM #90 tabs 10/15/24 12/04/24 Rx montelukast 10 mg tablet 10 mg PO HS #90 tabs 10/15/24 12/04/24 Rx esomeprazole magnesium 40 mg 40 mg PO BID gastric reflux #180 11/28/24 12/04/24 Rx capsule,delayed release (Nexium) caps losartan 50 mg tablet 100 mg (2 x 50 mg) PO QAM #180 tabs 11/28/24 12/04/24 Rx atorvastatin 10 mg tablet 10 mg PO QAM 12/04/24 12/04/24 History Past Med/Surg History Problem List Chronic pericardial effusion Chronic gastroesophageal reflux disease (Acute) AUGUSTE (dyspnea on exertion) (Acute) Chest pain (Acute) Acute pericardial effusion (Acute) Right shoulder pain Pericardial effusion Carpal tunnel syndrome Allergic rhinitis Nasal septal deviation Hypertrophy of both inferior nasal turbinates Refractory obstruction of nasal airway Chronic congestion of paranasal sinus Vitamin D deficiency (Chronic) Prediabetes (Chronic) Dyslipidemia (high LDL; low HDL) (Chronic) Chronic kidney disease, stage 3 (Chronic) Basal cell carcinoma of skin of face (Chronic) Chronic allergic rhinitis (Chronic) GERD without esophagitis (Chronic) HTN (hypertension) (Chronic) Medical History COVID-19 (12/2019) Surgical History History of colonoscopy Family History Brother Myocardial infarction, Onset Age: 51 Family/Other Family history of atherosclerosis Sister Coronary heart disease Father , at age 62 Heart disease Mother , at age 72 Heart disease Heart disease and embolic ischemia of leg Breast cancer Denies family history of Ovarian cancer Prostate cancer Colorectal cancer Social History (Updated 12/04/24 @ 19:21 by French Olguin MD, PhD) Smoking Status: Never smoker Second Hand Exposure: No; Do You Dip or Chew Tobacco: No; Hx Alcohol Use: No Hx Substance Use: No Preferred Language: Khmer Communication Ability: Effective Visual Impairment: No Limitations Hearing Ability: Normal Behavior Analyst Required: No Beliefs That Will Affect Care: None marital status: marital status details: 2 sons (40yrs, 36yrs), both alive/well. Current Living Situation: Spouse Current Living Situation Comment: Ambulates without assistance. Drives car independently. 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 Physical Exam Constitutional: General: Comfortable, coherent, cooperative. Awake, alert. Not confused, lethargic, or obtunded. Patient speaks in complete, fluent, and articulate sentences without pause, interruption, cough, or wheeze. HEENT: Normocephalic, atraumatic. Pupils equally round and reactive to light. No nystagmus, gaze paresis, anisocoria, miosis, mydriasis, hyphema, scleral injection, conjunctivitis, or pterygium. No otorrhea. No pharyngeal erythema, edema, or discharge. Neck: Supple, no stridor, bruit, goiter, or hepato-jugular reflux. Jugular venous pressure is estimated to be 3 cm above the sternal angle of Bruno, which in turn, is 5 cm above the level of the right atrium; with jugular venous pressure estimated to be 8 cm, then, there is no jugular venous distention on 12/04/2024. Lymphatics: No cervical (anterior/posterior), supraclavicular, infraclavicular, axillary, epitrochlear, or inguinal adenopathy. Chest: Symmetric rise and fall with respirations. Non-tender to palpation. Lungs: Clear to auscultation and percussion. No audible expiratory wheeze, egophony, pectoriloquy, increase in tactile fremitus, or flatness/dullness to percussion at the bases. Heart: RRR. S1 and S2 noted. No S3 or S4 summation gallop. No tripartite friction rub. Grade II/ early systolic murmur @ LLSB without radiation to the carotids, axilla, or back, and which remains invariant in regards to the respiratory cycle. Abdomen: Soft, non-distended, non-tender. No rebound, guarding, Ewing's sign, or organomegaly. Bowel sounds auscultated in all 4 quadrants. Extremities: No clubbing, cyanosis, or edema in upper extremities or lower extremities bilaterally. 2+ pedal pulses bilaterally. Skin: No decubitus ulcer or enanthem. Genito-urinary: No urethral discharge. No lentz catheter. Neurology: Alert and oriented in regards to person, place, time, and situation. DTR+. 5/5 motor strength in all 4 extremities, both proximally and distally. No myoclonus, tremors, or tics. Results & Data Results & Data Vital Signs (Past 12 Hours) Vital Signs Temp Pulse Pulse Resp BP BP Pulse Ox 12/04/24 18:19 12/04/24 18:19 36.4 C L 79 20 170/84 H 96 12/04/24 17:45 78 20 166/121 H 95 12/04/24 17:21 74 16 97 12/04/24 17:00 65 20 97 12/04/24 17:00 120/72 12/04/24 17:00 120/72 12/04/24 17:00 120/72 12/04/24 16:42 67 20 97 12/04/24 16:36 81 23 96 12/04/24 16:33 149/108 H 12/04/24 16:33 149/108 H 12/04/24 16:13 80 12/04/24 16:09 73 15 12/04/24 16:06 77 23 12/04/24 15:36 77 21 12/04/24 15:00 137/79 12/04/24 15:00 137/79 12/04/24 15:00 137/79 12/04/24 14:48 68 19 96 12/04/24 14:36 73 11 L 98 12/04/24 14:21 69 18 99 12/04/24 14:06 62 19 95 12/04/24 14:06 101/72 12/04/24 14:00 94/65 L 12/04/24 13:51 62 17 95 12/04/24 13:46 126/75 12/04/24 12:54 66 19 97 12/04/24 12:51 67 21 97 12/04/24 12:42 73 23 95 12/04/24 12:30 176/112 H 12/04/24 12:30 176/112 H 12/04/24 12:30 176/112 H 12/04/24 12:30 65 19 94 12/04/24 12:24 72 21 97 12/04/24 12:12 67 16 96 12/04/24 12:06 67 19 96 12/04/24 11:51 69 16 97 12/04/24 11:42 73 17 96 12/04/24 11:33 73 16 97 12/04/24 11:30 161/91 H 12/04/24 11:30 161/91 H 12/04/24 11:28 75 20 98 12/04/24 11:25 80 12/04/24 11:24 77 26 H 98 12/04/24 11:23 199/115 H 12/04/24 11:23 199/115 H 12/04/24 11:06 36.5 C 77 18 160/80 H 98 12/04/24 11:01 98 O2 Del Method 12/04/24 18:19 Room Air 12/04/24 18:19 Room Air 12/04/24 17:45 Room Air 12/04/24 17:21 12/04/24 17:00 12/04/24 17:00 12/04/24 17:00 12/04/24 17:00 12/04/24 16:42 12/04/24 16:36 12/04/24 16:33 12/04/24 16:33 12/04/24 16:13 12/04/24 16:09 12/04/24 16:06 12/04/24 15:36 12/04/24 15:00 12/04/24 15:00 12/04/24 15:00 12/04/24 14:48 12/04/24 14:36 12/04/24 14:21 12/04/24 14:06 12/04/24 14:06 12/04/24 14:00 12/04/24 13:51 12/04/24 13:46 12/04/24 12:54 12/04/24 12:51 12/04/24 12:42 12/04/24 12:30 12/04/24 12:30 12/04/24 12:30 12/04/24 12:30 12/04/24 12:24 12/04/24 12:12 12/04/24 12:06 12/04/24 11:51 12/04/24 11:42 12/04/24 11:33 12/04/24 11:30 12/04/24 11:30 12/04/24 11:28 Room Air 12/04/24 11:25 12/04/24 11:24 12/04/24 11:23 12/04/24 11:23 12/04/24 11:06 Room Air 12/04/24 11:01 Room Air Laboratory Results As above in the History of Present Illness. Diagnostic Findings As above in the History of Present Illness. Medications Administered As above in the History of Present Illness. Code Status & VTE Plan VTE Prophylaxis Plan VTE Prophylaxis will be ordered: Yes PG Care Time/CCT Total # of Minutes Spent Total Time Spent with Patient: Total time spent is greater than 50% in coordination of care (as documented) at patient's floor/unit and/or counseling patient: Coding Level of Care Code 85316 INT INP/OBS CARE MIN Diagnoses Chronic gastroesophageal reflux disease K21.9 Chronic pericardial effusion I31.39
[2024-12-04] MEDS: HEPARIN SOD 5,000 UNIT/0.5 ML VIAL SQ SCH (20:32)
[2024-12-04] MEDS: MONTELUKAST SODIUM 10 MG TABLET PO SCH (20:33)
[2024-12-04] MEDS: PANTOprazole 40 MG/10 ML SYR IV SCH (20:35)
[2024-12-04] MEDS ORDERED: FAMOTIDINE 40 MG TABLET PO SCH (21:00)
[2024-12-05] MEDS: CALCIUM CARBONATE 500 MG CHEWABLE TAB PO PRN (01:46)
[2024-12-05] MEDS: ALUMINUM/MAGNESIUM SUSP 30 ML UDC PO STA (01:46)
[2024-12-05 06:55] VITALS: RESP 18
[2024-12-05] MEDS: ASPIRIN 81 MG ECTAB PO SCH (08:23)
[2024-12-05] MEDS: METOPROLOL SUCC 50MG EXT REL TAB PO SCH (08:24)
[2024-12-05] MEDS: ATORVASTATIN 10 MG TAB PO SCH (08:24)
--- NOTE | 2024-12-05 08:26 | Discharge Summary ---
Discharge Summary Date of Service December 05, 2024 Principal Dx & Hospital Course #1 = Principal Diagnosis (1) Chronic gastroesophageal reflux disease: To address #1, patient was started on protonix 40mg IV bid (12/04/2024, 6:35pm) and underwent formal GI Service evaluation with Dr. Daniel Conn in the 12/05/2024 am with anticipated EGD. Of note, etiology of elevated CRP 0.56 mg/dL (12/04/2024, 11:20am) remains unclear, but probably represents long-standi ng inflammation associated with patient's presumptive diagnosis of chronic, severe GERD. In the interim, patient was advised to STOP taking his home- scheduled ASA 81mg PO daily and Super Beet Chews 1 tablet PO daily as either/both ASA/Super Beet Chews can exacerbate chronic, severe GERD. In addition, patient's home-scheduled esomeprazole 40mg PO bid was discontinued and replaced with protonix 40mg IV bid while in [facility] from 12/04/2024 through 12/05/2024, and followed by discharge home on 12/05/2024 with an electronic prescription for protonix 40mg PO bid, #60 tablets, no refills, transmitted to his [facility] store [id number], [address] [place] [address], on 12/05/2024, prior to hospital discharge home on 12/05/2024. (2) Chronic pericardial effusion: To address #2, patient was observed without further evaluation/intervention as "moderate size pericardial effusion" (as noted on 12/04/2024, 3:27pm TTE, CARDS Dr. Samir Colbert) most likely represents the sequela of post-COVID infection (December 2018), after which, patient was noted to have developed a "small pericardial effusion (< 1cm)" (as noted on 05/19/2023, 9:04am TTE, CARDS Dr. Rodney Benito)(as noted on 11/24/2023, 8:56am TTE, CARDS Dr. Rodney Benito), and neither small nor moderate pericardial effusion is likely to be causing or contributing to patient's complaints of severe burning radiating from the stomach to the throat/mouth. Moreover, patient remains hemodynamically stable and no tamponade physiology was observed on 12/04/2024, 3:21pm TTE, CARDS Dr. Samir Colbert). Admission HPI Per Admitting Provider 73 years old male with PMH of FULL CODE @ home, obesity with BMI 33.3 (height 157.5 cm; weight 82.6 kg), allergic rhinitis on fluticasone nasal spray, 2 sprays to each nostril daily, hyperlipidemia on atorvastatin 10mg PO qam, HTN on amlodipine 5mg PO qam, doxazosin 4mg PO qam, losartan 100mg PO qam, and metoprolol succinate 100mg PO qam, CKD stage III with baseline creatinine range, 1.35 - 1.67 mg/dL (04/04/2017 - 06/19/2024), long COVID s/p initial infection in December 2018, never hospitalized for COVID, but "sick for 11 days with no strength at all and all my organs got affected bad by this virus; I didn't really have a fever, but my blood pressure was low, and my son had to bring me food every day to help me eat and survive, otherwise I would be long now," followed by subsequent development of (a) "small pericardial effusion (< 1cm)" (as noted on 05/19/2023, 9:04am TTE, CARDS Dr. Rodney Benito)(as noted on 11/24/2023, 8:56am TTE, CARDS Dr. Rodney Benito), (b) mild intermittent asthma on singulair 10mg PO qhs. Patient also concedes to chronic, severe GERD (never formally diagnosed with EGD) for the past 30 years, on empiric esomeprazole 40mg PO bid and famotidine 40mg PO qhs to no avail, compelling patient to sleep in a recliner for the past 2 weeks because of water brash in the mouth, who reports: "I came to [facility] ER today because I can no longer take the burning in my throat; it comes up from my stomach and into my throat and mouth, and makes it so that I do not even want to breathe or even swallow any food. The burning gets worse when I lie down, day or night, and so I cannot sleep in a bed. I sleep upright in a recliner for the past 2 weeks, so that the burning in my throat is not so bad. I should let you know that I have really bad acid reflux for the past 30 years; I am taking esomeprazole 40mg PO bid and famotidine 40mg PO qhs, and they don't help reduce the burning in my throat. I did not come to [facility] ER with any shortness of breath or chest pain. I came to [facility] ER to figure out why I have this burning in my throat getting worse over the past 2 weeks. I have never had an EGD done, so maybe I can get an EGD here in [facility]." Patient denies antecedent/coincident fevers, chills, diaphoresis, cough, wheeze, sore throat, hemoptysis, chest pains, palpitations, pleurisy, shortness of breath, dyspnea on exertion, paroxysmal nocturnal dyspnea, orthopnea, platypnea, weight loss, weight gain, early satiety, anosmia, ageusia, myalgias, arthralgias, prostration, nausea, vomiting, diarrhea, abdominal pain, pelvic pain, hematemesis, hematochezia, melena, hematuria, dysuria, frequency, urgency, flank pain, headaches, dizziness, lightheadedness, visual changes, hearing changes, weakness, falls, syncope, trauma, travel history, sick contacts, or food/drug ingestions novel or new. All other review of systems are reported as negative by the patient on observation date 12/04/2024. In [facility] ER bed #A10, patient was afebrile @ 36.5 degrees Celsius, HR 77, RR 18, O2 sat 98% on room air, and BP 160/80 (12/04/2024, 11:06am). Exam was noted for the absence of enamel erosion, intra-mucosal nevi, or aphthous ulcers. Labs in [facility] ER bed #A10 included: WBC 7.35, N67 L17 M14 E1 B1, Hb 14.2, MCV 89.9, MCHC 34.6, platelet 252 (12/04/2024, 11:20am). Na 139, K 4.6, BUN 21, creatinine 1.49, GFR 49.9, glucose 92, Ca 9.6, AST 21, ALT 17, ALK PHOS 82, TBili 0.4 (12/04/2024, 11:20am). Troponin-I #1 5.7 pg/mL (12/04/2024, 11:20am). Troponin-I #2 4.6 pg/mL (12/04/2024, 12:56pm). Troponin-I #3 5.3 pg/mL (12/04/2024, 4:50pm). CRP 0.56 mg/dL (12/04/2024, 11:20am). Lipase 23 U/L (12/04/2024, 11:20am. Additional testing in [facility] ER bed #A10 included: Portable CXR (12/04/2024, 11:28am): No infiltrate, effusion, cardiomegaly, pulmonary vascular congestion, or pneumothorax (by my review). EKG (12/04/2024, 11:15am): NSR @ 77, WV 182, QTC 430, no acute ST depressions/elevations (by my review). TTE (12/04/2024, 3:27pm): 1. LVEF 55-60%. LV grade II diastolic dysfunction. 2. LA mildly dilated. RA size normal. 3. RV normal size and function. 4. Moderate size pericardial effusion. 5. No /AR. 6. PV grossly normal. 7. Significant MR absent. 8. Mild TR with RVSP normal. (as per CARDS Dr. Samir Colbert). Patient was subsequently placed in OBSERVATION on the hospitalist service @ [facility] on 12/04/2024 with the following diagnoses: 1. Chronic, severe GERD (never formally diagnosed with EGD) for the past 30 years, on empiric esomeprazole 40mg PO bid and famotidine 40mg PO qhs to no avail, compelling patient to sleep in a recliner for the past 2 weeks because of water brash in the mouth. R/O gastric/esophageal ulcer, R/O malignancy. 2. Incidental report of "moderate size pericardial effusion." (as noted on 12/04/2024, 3:27pm TTE, CARDS Dr. Samir Colbert). To address #1, patient was started on protonix 40mg IV bid (12/04/2024, 6:35pm) and underwent formal GI Service evaluation with Dr. Daniel Conn in the 12/05/2024 am with anticipated EGD. Of note, etiology of elevated CRP 0.56 mg/dL (12/04/2024, 11:20am) remains unclear, but probably represents long- standing inflammation associated with patient's presumptive diagnosis of chronic, severe GERD. In the interim, patient was advised to STOP taking his home-scheduled ASA 81mg PO daily and Super Beet Chews 1 tablet PO daily as either/both ASA/Super Beet Chews can exacerbate chronic, severe GERD. In addition, patient's home-scheduled esomeprazole 40mg PO bid was discontinued and replaced with protonix 40mg IV bid while in [facility] from 12/04/2024 through 12/05/2024, and followed by discharge home on 12/05/2024 with an electronic prescription for protonix 40mg PO bid, #60 tablets, no refills, transmitted to his [facility] store [id number], [address] [place] [address], on 12/05/2024, prior to hospital discharge home on 12/05/2024. To address #2, patient was observed without further evaluation/intervention as "moderate size pericardial effusion" (as noted on 12/04/2024, 3:27pm TTE, CARDS Dr. Samir Colbert) most likely represents the sequela of post-COVID infection (December 2018), after which, patient was noted to have developed a "small pericardial effusion (< 1cm)" (as noted on 05/19/2023, 9:04am TTE, CARDS Dr. Rodney Benito)(as noted on 11/24/2023, 8:56am TTE, CARDS Dr. Rodney Benito), and neither small nor moderate pericardial effusion is likely to be causing or contributing to patient's complaints of severe burning radiating from the stomach to the throat/mouth. Moreover, patient remains hemodynamically stable and no tamponade physiology was observed on 12/04/2024, 3:21pm TTE, CARDS Dr. Samir Colbert). Discharge Exam Constitutional General: Comfortable, coherent, cooperative. Awake, alert. Not confused, lethargic, or obtunded. Patient speaks in complete, fluent, and articulate sentences without pause, interruption, cough, or wheeze. HEENT: Normocephalic, atraumatic. Pupils equally round and reactive to light. No nystagmus, gaze paresis, anisocoria, miosis, mydriasis, hyphema, scleral injection, conjunctivitis, or pterygium. No otorrhea. No pharyngeal erythema, edema, or discharge. Neck: Supple, no stridor, bruit, goiter, or hepato-jugular reflux. Jugular venous pressure is estimated to be 3 cm above the sternal angle of Bruno, which in turn, is 5 cm above the level of the right atrium; with jugular venous pressure estimated to be 8 cm, then, there is no jugular venous distention on 12/05/2024. Lymphatics: No cervical (anterior/posterior), supraclavicular, infraclavicular, axillary, epitrochlear, or inguinal adenopathy. Chest: Symmetric rise and fall with respirations. Non-tender to palpation. Lungs: Clear to auscultation and percussion. No audible expiratory wheeze, egophony, pectoriloquy, increase in tactile fremitus, or flatness/dullness to percussion at the bases. Heart: RRR. S1 and S2 noted. No S3 or S4 summation gallop. No tripartite friction rub. Grade II/ early systolic murmur @ LLSB without radiation to the carotids, axilla, or back, and which remains invariant in regards to the respiratory cycle. Abdomen: Soft, non-distended, non-tender. No rebound, guarding, Ewing's sign, or organomegaly. Bowel sounds auscultated in all 4 quadrants. Extremities: No clubbing, cyanosis, or edema in upper extremities or lower extremities bilaterally. 2+ pedal pulses bilaterally. Skin: No decubitus ulcer or enanthem. Genito-urinary: No urethral discharge. No lentz catheter. Neurology: Alert and oriented in regards to person, place, time, and situation. DTR+. 5/5 motor strength in all 4 extremities, both proximally and distally. No myoclonus, tremors, or tics. Discharge Plan Discharge Items Patient Disposition: Home - Self-Care Reason For Visit: CHRONIC PERICARDIAL EFFUSION Discharge Diagnosis: Chronic GERD, unresponsive to esomeprazole 40mg PO bid and famotidine 40mg PO qhs at home Condition on Discharge: Fair Activity: Resume your previous activity Lifting: Gradually increase as tolerated Bathing: No limitations Sexual Activity: When tolerated Exercise/Sports: Gradually increase as tolerated and As tolerated Driving/Machine Use: No limitations Weightbearing: Full weightbearing Non-emergency contact: Primary Care Provider Call non-emergency contact if: you have any medication questions Follow-up/Referrals: Jeannette Griffith, [Primary Care Provider] - Diet: Heart Healthy Addtl Attending Provider Instructions: See your PCP Dr. Jeannette Griffith within 5-7 days of hospital discharge to arrange/schedule outpatient GI Clinic follow up appointment(s). In the interim, STOP taking aspirin 81mg PO daily and STOP taking Super Beet Chews, both of which can cause upset stomach and/or GERD. Pending Studies at Discharge: No Stand-Alone Forms: My [facility] [employer], Smoking Cessation Medications and DC Order Prescriptions: New pantoprazole [Protonix] 40 mg tablet,delayed release (DR/EC) 40 mg PO BID Qty: 60 0RF Continued fluticasone propionate 50 mcg/actuation spray,suspension 2 spray INTNAS QAM Qty: 47.4 0RF metoprolol succinate 50 mg tablet extended release 24 hr 100 mg PO QAM Qty: 180 1RF Rx Instructions: TAKE 2 TABLETS EVERY AM doxazosin 4 mg tablet 4 mg PO QAM Qty: 90 1RF montelukast 10 mg tablet 10 mg PO HS Qty: 90 1RF amlodipine 5 mg tablet 5 mg PO QAM Qty: 90 1RF losartan 50 mg tablet 100 mg PO QAM Qty: 180 1RF atorvastatin 10 mg tablet 10 mg PO QAM Discontinued famotidine 40 mg tablet 40 mg PO HS Qty: 90 3RF esomeprazole magnesium [Nexium] 40 mg capsule,delayed release(DR/EC) 40 mg PO BID Qty: 180 1RF cholecalciferol (vitamin D3) 50 mcg (2,000 unit) capsule 2,000 unit PO DAILY Super Beets Chews 1 tab PO QAM aspirin 81 mg tablet,delayed release (DR/EC) 0 mg PO DAILY Patient Comments: Per pt: Started withholding medication on 12/03/24 to see if it attributed to his acid reflux. Will restart if this is ruled out. Rx Instructions: Per pt: Started withholding medication on 12/03/24 to see if it attributed to his acid reflux. Will restart if this is ruled out. Original Directions: 81mg by mouth daily mecobalamin (vitamin B12) 1,000 mcg tablet,chewable 1,000 mcg PO DAILY Men's 50 Plus Multivitamin 400-20-370 mcg tablet 1 tab PO DAILY Rx Instructions: give with meal/snack Discharge Orders: Discharge Order (Routine); Ordered 12/05/24 Ordered By: French Olguin Admission Data Admit Date/Time: 12/04/24 15:13 Attending Provider: French Olguin Admit Provider: French Olguin Primary Care Provider: Jeannette Griffith Other Providers: French Olguin; Daniel Conn I Hospital Stay Data Consultations 12/04/24 15:10 ED Decision to Admit Stat 12/05/24 08:00 Consult Gastroenterology Routine Pending Results Patient Have Any Pending Studies at Discharge: No Discharge Instructions Given to Patient (Per Discharging Provider) See your PCP Dr. Jeannette Griffith within 5-7 days of hospital discharge to arrange/schedule outpatient GI Clinic follow up appointment(s). In the interim, STOP taking aspirin 81mg PO daily and STOP taking Super Beet Chews, both of which can cause upset stomach and/or GERD. Total Time Total Time Spent Total Time Spent (In Minutes): 35 minutes. Of this time period, 19 minutes were spent in coordinating pat ient's discharge. Coding Level of Care Code 48024 INP/OBS DISCH >30 MIN Diagnoses Chronic gastroesophageal reflux disease K21.9 Chronic pericardial effusion I31.39
--- NOTE | 2024-12-05 12:55 | Communication Note ---
Date of Service: December 05, 2024 Consult placed for "burning in throat for 30 years." Patient is being discharged today (orders and discharge summary in) after he was switched to Protonix 40 mg BID per the hospitalist service. Given the chronicity of his symptoms and concern for ongoing GERD in the absence of alarming GI findings, his needs are best appropriately managed with outpatien t GI evaluation. Our office will reach out to coordinate evaluation and to arrange an EGD.
[2024-12-05 13:51] VITALS: BP 152/75; PULSE 67; TEMP 97.2; O2SAT 97
== END 2024-12-05 14:42 | disposition home or self-care (01) ==
LOC: 3N 10:59 → ED 10:59 → 3N 17:45